=== PATIENT | female | born 1950 | race Caucasian/White ===

== ENCOUNTER 2016-09-19 10:30 | Emergency (ER) | payer MEDICARE, OTHER ==
[2016-04-23 11:06] VITALS: BMI 35.2
[~2016-09-19 10:30] MED LIST: AMBIEN10 MG PO; ATIVAN1 MG PO; CARAFATE1 G PO; CLARITIN 10 MG10 MG PO; COMBIVENT RESPIM4 GM INH; CYCLOBENZAPRINE10 MG PO; DETROL LA4 MG PO; DULCOLAX5 MG PO; DURAGESIC1 PATCH .2 TD; HYDROCODONE-APA1 TAB PO; LANTUS SOL100 UNIT/1 SC; LANTUS SOL100 UNIT/1 SQ; LISINOPRIL10 MG PO; MIRALAX17 GM PO; NASACORT10.8 ML NASAL; NORCO 10/325 TA1 TA1 PO; PEPCID40 MG PO; PERCOCET 10/3251 TA1 PO; PHENERGAN25 M1 PO; POTASSIUM HCL; POTASSIUM HCL PO; POTASSIUM99 M1 PO; PRAVACHOL40 MG PO; PRILOSEC20 MG PO; PROTONIX40 MG PO; PROZAC40 MG PO; STOOL SOFTENER240 MG PO; SYNTHROID50 MCG PO; TAMOXIFEN CITRA20 MG PO; VESICARE5 MG PO; VITAMIN C1000 MG PO; WELLBUTRIN75 MG PO; ZANAFLEX4 MG PO; ZOFRAN8 MG PO; [UNRECOGNIZED DRUG - REMARK]
[2016-09-19 11:41] LABS: APPEARANCE CLOUDY (CLEAR); BILIRUBIN NEGATIVE (NEGATIVE); COLOR YELLOW (YELLOW); GLUCOSE NEGATIVE (NEGATIVE); KETONE NEGATIVE (NEGATIVE); LEUKOCYTE ESTERASE TRACE (NEGATIVE); NITRITE NEGATIVE (NEGATIVE); PROTEIN NEGATIVE (NEGATIVE); UROBILINOGEN NORMAL (NORMAL)
[2016-09-19 11:47] LABS: BASOPHILS 0.2 % (0.0-2.0); EOSINOPHILS 0.2 % (0-7); HEMATOCRIT 38.4 % (36.0-48.0); HEMOGLOBIN 12.2 g/dL (12-16); LYMPHOCYTES 10.1 % (15-50); MCHC 31.8 g/dL (31.0-37.0); MCV 91.4 fL (80.0-100.0); MEAN PLATELET VOLUME 10.6 fL (7.4-10.4); MONOCYTES 1.7 % (2-11); NEUTROPHILS 87.8 % (40-80); RDW 14.1 % (11.5-14.5); WBC 4.2 10x3/uL (4.8-10.8)
[2016-09-19 11:52] LABS: BACTERIA MODERATE /hpf (NONE SEEN); RED CELLS - URINE NONE SEEN /hpf (0-5)
[2016-09-19 12:12] LABS: ALBUMIN 3.3 g/dL (3.4-5.0); ANION GAP 13.8 mmol/L (8-16); BILIRUBIN - TOTAL 0.4 mg/dL (0.2-1.3); CARBON DIOXIDE 26.7 mmol/L (21.0-32.0); CREATININE - SERUM 1.1 mg/dL (0.6-1.3); POTASSIUM - SERUM 4.5 mmol/L (3.5-5.1)
[2016-09-19 12:16] LABS: PLATELET COUNT 117 10x3/uL (130-400)
[2016-09-19 12:49] LABS: UDS - AMPHET NEGATIVE QUAL (NEGATIVE); UDS - BARB NEGATIVE QUAL (NEGATIVE); UDS - BENZO NEGATIVE QUAL (NEGATIVE); UDS - COCAINE NEGATIVE QUAL (NEGATIVE); UDS - METH NEGATIVE QUAL (NEGATIVE); UDS - OPIATE POSITIVE QUAL (NEGATIVE); UDS - PCP NEGATIVE QUAL (NEGATIVE); UDS - THC NEGATIVE QUAL (NEGATIVE)
== END 2016-09-19 15:00 | disposition home or self-care (01) ==
LOC: D.ER 10:30
PROVIDERS: Emergency Medicine; Nurse Practitioner Family
DX: T40.2X1A Poisoning by other opioids, accidental (unintentional), initial encounter (principal); Y92.019 Unspecified place in single-family (private) house as the place of occurrence of the external cause; F32.9 Major depressive disorder, single episode, unspecified; G47.00 Insomnia, unspecified; Z95.0 Presence of cardiac pacemaker; I48.0 Paroxysmal atrial fibrillation; E03.9 Hypothyroidism, unspecified; E11.9 Type 2 diabetes mellitus without complications; Z79.4 Long term (current) use of insulin

== ENCOUNTER 2016-09-22 13:39 | Inpatient (IN) | payer MEDICARE, OTHER ==
[~2016-09-22] VITALS: Ht 162.6 cm; Wt 80.7 kg
--- NOTE | 2016-09-22 13:55 | NUR ---
Arrived to unit ambulatory accompanied per admission staff, verbalized name and , patient crying and holding her head in her lap. Expresses that she lost her spouse six months ago " I'm alone, I have nobody." asked if she had a support system at [facility] " they don't have time for me." has passive wish, " I just want to sleep on." No plan. Contracted for safety. Assessment complete. Oriented to unit. Patient lives alone at home, drove herself here, states she has a friend Paola for emergency contact.
[2016-09-22] MEDS ORDERED: K-DUR20 MEQ PO (14:09)
[2016-09-22] MEDS ORDERED: MS CONTIN30 MG PO (14:18)
[2016-09-22] MEDS ORDERED: PEPCID AC20 MG PO (14:22)
[2016-09-22 15:50] LABS: HEMOGLOBIN A1C 5.3 % (4.8-6.0)
[2016-09-22 16:02] LABS: CHOL - HDL RATIO 3.1 ratio (2.3-4.1); LDL-HDL RATIO 1.8 ratio (1.5-3.5); THYROID STIMULATING HORMONE 0.9 uIU/mL (0.36-3.74)
[2016-09-22 16:29] VITALS: BP 151/90
[2016-09-22 16:43] LABS: APPEARANCE HAZY (CLEAR); COLOR YELLOW (YELLOW); GLUCOSE NEGATIVE (NEGATIVE); KETONE NEGATIVE (NEGATIVE); LEUKOCYTE ESTERASE 1+ (NEGATIVE); NITRITE NEGATIVE (NEGATIVE); PROTEIN NEGATIVE (NEGATIVE)
[2016-09-22 16:44] LABS: BACTERIA MANY /hpf (NONE SEEN); BILIRUBIN NEGATIVE (NEGATIVE); UROBILINOGEN NORMAL (NORMAL)
[2016-09-22 20:00] VITALS: BP 138/69
--- NOTE | 2016-09-22 20:05 | NUR ---
RECEIVED IN DAYROOM. LAYING ON SOFA WITH EYES CLOSED. RESPONDS TO TOUCH. CALM AND COOPERATIVE WITH CARE AND ASSESSMENT. DENIES THOUGHT OF SELF HARM. ENCOURAGE TO EXPRESS NEEDS AND FEELINGS. REMAINS ON SOFA WITH EYES CLOSED. CONTINUE PLAN OF CARE
[2016-09-23 07:25] VITALS: BP 146/94
[2016-09-23 10:17] LABS: HEMOGLOBIN A1C 5.8 % (4.8-6.0)
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
--- NOTE | 2016-09-23 12:09 | NUR ---
(B)RECEIVED PATIENT SITTING IN A CHAIR AT THE NURSE'S STATION. ORIENTED X3. RELATES REASON FOR HOSPITALIZATION "CAUSE I DIDN'T TAKE MY MEDICINE RIGHT." WHEN ASKED PATIENT IF SHE WAS HAVING THOUGHTS OF HURTING SELF SHE DENIES THIS REALTING "JUST WANTED TO GO TO SLEEP. SOMETIMES I DON'T FEEL LIKE I GET EMOUGH SLEEP." (I)ADMINISTER MEDS AND MONITOR COMPLIANCE. OBTAIN VERBAL NO HARM CONTRACT. (R)MED COMPLIANT. CONTRACTS VERBALLY FOR NO SELF HARM, (P)CONTINUE POC AND MAINTAIN FALL PRECAUTIONS.
[2016-09-23 15:09] VITALS: BMI 30.5
[2016-09-23 19:16] VITALS: BP 113/76
--- NOTE | 2016-09-23 19:57 | NUR ---
RECEIVED IN DAYROOM. LAYING ON SOFA WITH EYES OPEN WATCHINT TV. CALM AND COOPERATIVE WITH CARE AND ASSESSMENT. DENIES THOUGHT OF SELF HARM. ENCOURAGE TO EXPRESS NEEDS. ALERT AND ORIENTED.CONTINUE PLAN OF CARE
[2016-09-24 06:16] LABS: RAPID PLASMA REAGIN Non Reactive (Non Reactive)
[2016-09-24 08:06] VITALS: BP 134/78
[2016-09-24 09:19] LABS: FOLATE (FOLIC ACID) - SERUM >20.0 ng/mL (>3.0)
--- NOTE | 2016-09-24 10:30 | NUR ---
SPOKE WITH PATIENT'S FRIEND AFTER RECEIVING PERMISSION FROM PATIENT. UPDATE ON CONDITION GIVEN. QUESTIONS ANSWERED.
[2016-09-24 12:21] LABS: VITAMIN D 25 HYDROXY 26.9 ng/mL (30.0-100.0)
--- NOTE | 2016-09-24 16:33 | PN ---
PATIENT:CHIO CHRIS MEDICAL RECORD: [id number] LOCATION:[facility] ADMISSION DATE: 09/22/16 PROGRESS NOTE DATE OF SERVICE: 09/23/2016 SUBJECTIVE: The patient's case was discussed with staff. She has no new complaint. OBJECTIVE: The patient is in good behavioral control with poor insight about her condition. She is profoundly depressed. Today, she denies wanting to kill herself and says she wishes she just go to sleep and not wake up. ASSESSMENT: No change in diagnoses. PLAN: The patient is going to be given a different antidepressant. She is on both Prozac and Wellbutrin. She insists she has been taking them consistently and it is been for a long time. I am going to discontinue both of them and start her on Effexor. Brief supportive and educational interventions were made. TRANSINT:[id number] Voice Confirmation ID: [id number] DOCUMENT ID: [id number] AIDE TA MD at 1633 CC: [id number] DICTATION DATE: 09/23/162116 COVERSTITCH BINDER: 09/23/163 ADM IN [place] [id number] [place] [address]
--- NOTE | 2016-09-24 16:33 | PSY ---
PATIENT NAME:CHIO CHRIS MEDICAL RECORD: [id number] : 50 LOCATION:[facility]7 ADMISSION DATE: 09/22/16 ACCOUNT: [id number] PSYCHIATRIC EVALUATION DATE OF EVALUATION: 09/22/16 Psychiatric Evaluation IDENTIFYING DATA: The patient is 66 years old and she is admitted to the hospital on a voluntary basis. CHIEF COMPLAINT: Depression. HISTORY OF PRESENT ILLNESS: The patient is a very nice woman, who unfortunately has had a great deal of stress lately. She lost her of 25 years 6 months ago and since losing him, she has been diagnosed with breast cancer. She endorses numerous neurovegetative depressive symptoms and says she wishes she were and that she has thought about ways that she could kill herself. She denies substance abuse and psychotic symptoms. PAST MEDICAL HISTORY: Significant for breast cancer, hypertension, diabetes and hypothyroidism. PAST PSYCHIATRIC HISTORY: Significant for depression, which predates the most recent events. She has been hospitalized in the past for depression and denies that she has actively sought to kill herself. FAMILY HISTORY: Negative for psychiatric disease. ALLERGIES: No known drug allergies. CURRENT MEDICATIONS: Please see the admission's MAR. SOCIAL HISTORY: The patient has been twice. She has 1 child and 2 stepchildren. She is not close to any of them. She is not originally from this area, although she has lived here for a long time. As mentioned above, her of the past 25 years 6 months ago and she has been having a very difficult time adjusting to his and then she now also has developed breast cancer. She is severely depressed with suicidal thoughts and a very limited support system. MENTAL STATUS EXAMINATION: The patient is awake, alert and oriented to person, place, somewhat to time and fully to situation. Her mood is depressed. Her affect is constricted. Thought processes are slowed and she has mild impairment of her memory, concentration and abstraction abilities. She denies that she would seek to harm others as well as psychotic symptoms, but she endorses thoughts of self-harm as described above. ASSETS: Ability to make her needs known. LIABILITIES: Limited insight. DIAGNOSTIC IMPRESSION: AXIS I: Major depression, severe, recurrent, without psychotic features. AXIS II: None. AXIS III: Breast cancer, hypertension, diabetes, hypothyroidism. AXIS IV: Severe stressors. AXIS V: Global assessment of functioning is 40. PLAN: At this time, the patient is admitted to the hospital for a comprehensive medical, psychological and social evaluation. She will be treated with both mood-stabilizing and antidepressant medications as deemed appropriate. Her long-term prognosis is guarded. TRANSINT:[id number] Voice Confirmation ID: [id number] DOCUMENT ID: [id number] AIDE TA MD at 1633 CC: [id number] DICTATION DATE: 09/22/161944 PARKING METER INSTALLER: 09/22/162150 ADM IN [facility] [address] [place] [address]
--- NOTE | 2016-09-24 18:18 | NUR ---
(B)RECEIVED PATIENT SITTING IN A CHAIR AT THE NURSE'S STATION. ORIENTED X3. POOR INSIGHT INTO THE REASON FOR HOSPITALIZATION AND IS IN DENIAL WHEN SHE IS INFORMED OF HAVING THOUGHTS OF HURTING SELF. RELATES JUST WANTED TO SLEEP. SOCIALLY WITHDRAWN AND ISOLATIVE. EPISODES OF CRYING AND ROCKING BACK AND FORTH. PATIENT RELATES "I CAN'T TELL YOU" WHEN ASKED THE REASON SHE IS UPSET. REQUESTING TO SPEAK WITH CARLY THE RESEARCH DEVELOPMENT DIRECTOR. (I)ADMINISTER MEDS AND MONITOR COMPLIANCE. OBTAIN VERBAL CONTRACT FOR NO SELF HARM.(R) MED COMPLIANT. CONTRACTS VERBALLY FOR NO SELF HARM, CONTINUES TO HAVE EPISODES OF TEARFULNESS AND ISOLATING. (P)CONTINUE POC AND MAINTAIN FALL PRECAUTIONS.
[2016-09-24 20:39] VITALS: BP 108/75
--- NOTE | 2016-09-25 00:31 | NUR ---
B) Recieved patient in the day room , alert and oriented X 3, social with staff and peers, helpful and pleasant, I) Administered perscribed medications, monitored for safety, contracted for no self harm, R) Medication compliant, no S.I. this shift, P) Continue plan of care, continue to monitor.
--- NOTE | 2016-09-25 12:32 | PN ---
PATIENT:CHIO CHRIS MEDICAL RECORD: [id number] LOCATION:[facility] ADMISSION DATE: 09/22/16 PROGRESS NOTE DATE OF SERVICE: 09/24/2016 Psychiatric Progress Note SUBJECTIVE: The patient's case was discussed with staff. She has no new complaint. OBJECTIVE: The patient is in good behavioral control, but very tearful. She is also somatic. She is crying, saying she thinks she will never get better and there is no hope for her. ASSESSMENT: Major depression. PLAN: The patient was reassured about how treatable depression is and how little time she is given the medications. Also, supportive and therapeutic interventions were made. I think I may have gotten some incorrect information regarding her past medical history and breast cancer and I will confirm that tomorrow with her primary care physician. TRANSINT:[id number] Voice Confirmation ID: [id number] DOCUMENT ID: [id number] AIDE TA MD at 1232 CC: [id number] DICTATION DATE: 09/24/16 1641 WATER SUPERVISOR: 09/24/16 2206 ADM IN [facility] [address] [place] [address]
--- NOTE | 2016-09-25 14:19 | NUR ---
(B)RECEIVED PATIENT SITTING IN A CHAIR AT THE NURSE'S STATION. ORIENTED X3. RELATES IS HOSPITALIZED "BECAUSE I CAN'T REALLY TAKE CARE OF MYSELF RIGHT NOW." WITHDRAWN HOWEVER WILL SOCIALIZE AT TIMES. WATCHES OTHER PATIENT'S AND TELLS STAFF WHAT THEY NEED TO DO. SOMATIC. RATES PAIN TO BACK AND BUTT 10/10. (I)ADMINISTER MEDS AND MONITOR COMPLIANCE. OBTAIN VERBAL NO HARM CONTRACT. (R)MED COMPLIANT. CONTRACTS VERBALLY FOR NO SELF HARM, DENIES SI THIS. (P)CONTINUE POC AND MAINTAIN FALL PRECAUTIONS.
[2016-09-25 20:59] VITALS: BP 125/65
--- NOTE | 2016-09-26 03:46 | NUR ---
PATIENT GIVEN PRN AMBIEN 10 MG AND PRN ATIVAN 5 MG FOR ANXIETY AND INSOMNIA. BED IN LOW POSITION, BOX ALARM ATTACHED TO PATIENT, SLIP SOCKS ON AND VALENZUELA WITHIN REACH. CONTINUE TO MONITOR
[2016-09-26 07:53] VITALS: BP 129/87
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
--- NOTE | 2016-09-26 13:38 | PN ---
PATIENT:CHIO CHRIS MEDICAL RECORD: [id number] LOCATION:[facility]112 ADMISSION DATE: 09/22/16 PROGRESS NOTE DATE OF SERVICE: 09/25/2016 SUBJECTIVE: The patient's case was discussed with staff. She has no new complaint. OBJECTIVE: The patient is very tearful. She is not eating adequately. She denies that she would seek to harm herself, but she does so in a way that is not very convincing. ASSESSMENT: No change in diagnoses. PLAN: The patient will have her Effexor increased to 37.5 mg twice daily. Effexor is being used to treat her underlying depressive symptoms. She will be monitored for clinical changes associated with its use. TRANSINT:[id number] Voice Confirmation ID: [id number] DOCUMENT ID: [id number] AIDE TA MD at 1338 CC: [id number] DICTATION DATE: 09/25/16 1252 JUTE BAG CLIPPER: 09/25/16 1449 ADM IN [place] [id number] [place] [address]
[2016-09-26 19:30] VITALS: BP 121/73
--- NOTE | 2016-09-26 20:55 | NUR ---
B) RECEIVED IN DAYROOM, SITTING IN CHAIR WATCHING TV WITH PEERS. SHE IS CALM, PLEASANT AND HELPFUL. AMBULATES INDEPENDENTLY. VSS. I) ADMINISTER PRESCRIBED MEDICATIONS, DENIES SELF HARM. EXPRESS NEEDS/FEELINGS R) MEDICATION COMPLIANT. CALM AND COOPERATIVE WITH CARE AND ASSESSMENT. P) CINTINUE CURRENT PLAN OF CARE AND MONITOR FOR SAFETY AND CHANGES.
[2016-09-27 09:32] VITALS: BP 129/79
[2016-09-27 19:30] VITALS: BP 93/45
--- NOTE | 2016-09-27 21:00 | NUR ---
RECEIVED IN DAYROOM SITTINGH IN CHAIR WATCHING TV WITH PEERS. AWAKE AND ORIENTED X 3.. CALM AND COOPERATIVE WITH CARE AND ASSESSMENT. REDIRECT NEEDED. MEDICATION COMPLIANT. VSS. CONTINUE PLAN OF CARE AND MONITOR FOR SAFETY.
[2016-09-28 07:00] VITALS: BP 137/79
--- NOTE | 2016-09-28 15:31 | NUR ---
PATIENT IS AGITATED, SAYING THAT A PEER IS GETTING ALL THE ATTENTION FOR ACTING OUT. SHE IS SHAKING HER HEAD AND ANGRY. PATIENT ASKED FOR MEDICATION FOR ANXIETY. PRN ATIVAN GIVEN
--- NOTE | 2016-09-28 16:02 | NUR ---
PATIENT IN DAYROOM, HOLDING HEAD IN HANDS. PAIN LEVEL 10/10. REFUSED ICE OR REPOSITIONING. CONTINUE TO MONITOR
[2016-09-28 19:30] VITALS: BP 123/81; BP 142/76
--- NOTE | 2016-09-29 03:49 | NUR ---
B) Recieved patient sitting in the day room watching TV< Alert and oriented X 3, anxious at times worried about getting her sleeping pill, I) Administered perscribed medications, monitored for safety , PRN Ambien 10 mg given for insomnia at 2055, R) Medication compliant, calmer after knowing she would get her sleeping pill, P) Continue plan of care, continue to monitor.
[2016-09-29 07:00] VITALS: BP 119/51
[2016-09-29 09:17] LABS: BASOPHILS 0 % (0.0-2.0); EOSINOPHILS 0 % (0-7); HEMATOCRIT 38.8 % (36.0-48.0); HEMOGLOBIN 12.5 g/dL (12-16); IMMATURE GRANULOCYTES 0.2 % (0-5); LYMPHOCYTES 10.1 % (15-50); MCH 28.8 pg (26.0-34.0); MCHC 32.2 g/dL (31.0-37.0); MCV 89.4 fL (80.0-100.0); MEAN PLATELET VOLUME 10.5 fL (7.4-10.4); MONOCYTES 6.1 % (2-11); NEUTROPHILS 83.6 % (40-80); RBC 4.34 10x6/uL (4.00-5.40); RDW 14.2 % (11.5-14.5); WBC 4.3 10x3/uL (4.8-10.8)
[2016-09-29 09:20] LABS: ANION GAP 11.2 mmol/L (8-16); CALCIUM 8.6 mg/dL (8.5-10.1); CARBON DIOXIDE 28.6 mmol/L (21.0-32.0); CREATININE - SERUM 0.9 mg/dL (0.6-1.3); POTASSIUM - SERUM 3.8 mmol/L (3.5-5.1)
[2016-09-29 09:50] LABS: PLATELET COUNT 70 10x3/uL (130-400)
[2016-09-29 09:53] LABS: PLATELET ESTIMATE DECREASED
--- NOTE | 2016-09-29 14:09 | PN ---
PATIENT:CHIO CHRIS MEDICAL RECORD: [id number] LOCATION:[facility] ADMISSION DATE: 09/22/16 PROGRESS NOTE DATE OF SERVICE: 09/26/2016 SUBJECTIVE: The patient's case was discussed with staff. She has no new complaint. OBJECTIVE: The patient is in good behavioral control with limited insight about her condition. She does tolerate her medicines well. ASSESSMENT: No change in diagnoses. PLAN: Current medicines have been reviewed and will be maintained. Her long-term prognosis is guarded. TRANSINT:[id number] Voice Confirmation ID: [id number] DOCUMENT ID: [id number] AIDE TA MD at 1409 CC: [id number] DICTATION DATE: 09/26/16 1331 SILVER HOLLOWARE ASSEMBLER: 09/26/16 2047 ADM IN [place] [id number] [place] [address]
--- NOTE | 2016-09-29 15:05 | NUR ---
B.) Alert and oriented times four, not wanting to get out of bed this am, with somatic complaints of " I'm getting pneumonia." Medical MD present, reported temp of 100.2 and productive cough with greenish colored sputum. C X R and lab ordered. I.) Administer medications and monitor compliance. Monitor for any suicidial ideations and contrat for safety. Encourage to express feelings and participation in group. R.) Compliant with medications, reluctant to get out of bed, ate breakfast and then laid on safa, emotionally labile, tearful and cries at times then will turn around smiling and conversing with staff. Contracted for no self harm. P.) Continue with plan of care.
[2016-09-29 19:30] VITALS: BP 96/58
--- NOTE | 2016-09-29 20:11 | NUR ---
RECEIVED IN DAYROOM. LAYING ON SOFA WITH EYES OPEN WATCHING TV, CALM AND COOPERATIVE WITH CARE AND ASSESSMENTS. DENIES THOUGHT OF SELF HARM. ENCOURAGE TO EXPRESS NEEDS. CONTINUES TO EXPRESS NEEDS. CONTINUE PLAN OF CARE
[2016-09-30 12:08] VITALS: Ht 162.6 cm; Wt 80.7 kg
[2016-09-30] MEDS ORDERED: ZITHROMAX250 MG PO (14:09)
[2016-09-30] MEDS ORDERED: LIPITOR10 MG PO (14:09)
[2016-09-30] MEDS ORDERED: LISINOPRIL10 MG PO (14:09)
[2016-09-30] MEDS ORDERED: EFFEXOR50 MG PO (14:10)
--- NOTE | 2016-09-30 14:16 | PN ---
PATIENT:CHIO CHRIS MEDICAL RECORD: [id number] LOCATION:[facility] ADMISSION DATE: 09/22/16 PROGRESS NOTE DATE OF SERVICE: 09/29/2016 SUBJECTIVE: The patient's case was discussed with staff. She has no new complaint. OBJECTIVE: The patient is in good behavioral control with limited insight about her condition. She does tolerate her medicines well. Eye contact is fair. ASSESSMENT: No change in diagnoses. PLAN: The patient's depressive symptoms appear a little bit better. I am going to increase the dose of the Effexor and I would anticipate she can be transitioned out of the hospital soon if this level of improvement is maintained. TRANSINT:[id number] Voice Confirmation ID: [id number] DOCUMENT ID: [id number] AIDE TA MD at 1416 CC: [id number] DICTATION DATE: 09/29/16 1426 NET WASHER: 09/29/16 2341 ADM IN [facility] [address] [place] [address]
--- NOTE | 2016-09-30 18:23 | NUR ---
PATIENT IN DINING ROOM VISITING WITH FAMILY. SHE HAS BEEN PLEASANT, CALM AND COOPERATIVE. CONTINUE TO MONITOR
[2016-09-30 19:52] VITALS: BP 93/55
--- NOTE | 2016-09-30 20:18 | NUR ---
RECEIVED IN DAYROOM. LAYING IN RECLINING CHAIR WITH EYES CLOSED. RESPONDS TO VOICE. CALM AND COOPERATIVE WITH CARE AND ASSESSMENT. DENIES SELF HARM. ENCOURAGE TO EXPRESS NEEDS. CONTINUE PLAN OF CARE
[2016-10-01 08:00] VITALS: BP 141/87
--- NOTE | 2016-10-01 08:31 | NUR ---
Prescriptions called in to [facility] [address] follow up appointment with Dr. Owen scheduled for October 22 at 1500.
--- NOTE | 2016-10-01 11:50 | NUR ---
Alert and oriented time four, smiling and socializing with staff and peers. Very hopeful and states she feels she is able to cope. Goal oriented and is thinking logical. No suicidial ideations, has been instructed on grief support group and Hank transition outpatient. Complaint with mnedications. Plan for discharge today.
--- NOTE | 2016-10-01 12:00 | PN ---
PATIENT:CHIO CHRIS MEDICAL RECORD: [id number] LOCATION:[facility] ADMISSION DATE: 09/22/16 PROGRESS NOTE DATE OF SERVICE: 09/30/2016 SUBJECTIVE: The patient's case was discussed with staff. She has no new complaint. OBJECTIVE: The patient is in good behavioral control with limited insight about her condition. She tolerates her medicines well. She has no thoughts of self-harm, has shown significant improvement and is tentatively scheduled to go home tomorrow. Her long-term prognosis is guarded. Current medicines will be maintained. Followup will be with the outpatient geriatric counseling program. TRANSINT:[id number] Voice Confirmation ID: [id number] DOCUMENT ID: [id number] AIDE TA MD at 1200 CC: [id number] DICTATION DATE: 09/30/16 1424 BUILDING SPECIALIST: 09/30/16 2346 ADM IN [place] [address] [place] [address]
--- NOTE | 2016-10-01 12:30 | NUR ---
Prepared for discharge, patient states she is driving herself home, has close friends to rely on. Good spirits. Discharge instructions and telephone number given regarding support groups and outpatient treatment. Verbalized understanding. Discharged with no incident and ambulated with staff to vehicle.
--- NOTE | 2016-10-02 15:04 | PN ---
PATIENT:CHIO CHRIS MEDICAL RECORD: [id number] LOCATION:[facility] ADMISSION DATE: 09/22/16 PROGRESS NOTE DATE OF SERVICE: 10/01/2016 SUBJECTIVE: The patient's case was discussed with staff. She has no new complaint. OBJECTIVE: The patient has no thoughts of harming herself or others. She tolerates her medicines well. Eye contact is fair. ASSESSMENT: No change in diagnoses. PLAN: The patient does not represent an acute danger to herself or others. She is tolerating her medications well. Her long-term prognosis is guarded. She will be transitioned out of the hospital today and follow up will be with the psychiatrist at [facility] and the day program he operates. TRANSINT:[id number] Voice Confirmation ID: [id number] DOCUMENT ID: [id number] AIDE TA MD at 1504 CC: [id number] DICTATION DATE: 10/01/16 1222 TERRAZZO INSTALLER: 10/01/161913 DIS IN 10/01/16 [facility] [address] [place] [address]
== END 2016-10-01 12:30 | disposition home or self-care (01) | DRG 885 ==
LOC: D.PSYCH 13:39
PROVIDERS: Family Medicine; ADMIT Psychiatry & Neurology Psychiatry
DX: F33.9 Major depressive disorder, recurrent, unspecified (principal); G47.00 Insomnia, unspecified; N32.81 Overactive bladder; K21.9 Gastro-esophageal reflux disease without esophagitis; E03.9 Hypothyroidism, unspecified; I10 Essential (primary) hypertension; J44.9 Chronic obstructive pulmonary disease, unspecified; E11.9 Type 2 diabetes mellitus without complications; Z85.3 Personal history of malignant neoplasm of breast; E78.5 Hyperlipidemia, unspecified; G89.29 Other chronic pain; M54.5 Low back pain

== ENCOUNTER 2016-12-09 19:29 | Inpatient (IN) | payer MEDICARE, OTHER ==
[~2016-12-09] VITALS: Ht 162.6 cm; Wt 71.1 kg
[2016-12-10 03:51] VITALS: BP 172/98
[2016-12-10 06:11] LABS: HEMATOCRIT 39.1 % (36.0-48.0); HEMOGLOBIN 12.7 g/dL (12-16); MCHC 32.5 g/dL (31.0-37.0); MCV 92.2 fL (80.0-100.0); MEAN PLATELET VOLUME 10.2 fL (7.4-10.4); PLATELET COUNT 99 10x3/uL (130-400); RBC 4.24 10x6/uL (4.00-5.40); RDW 15.2 % (11.5-14.5); WBC 2.7 10x3/uL (4.8-10.8)
[2016-12-10 06:22] LABS: HEMOGLOBIN A1C 5.2 % (4.8-6.0)
[2016-12-10 07:23] LABS: ALBUMIN 2.5 g/dL (3.4-5.0); ALKALINE PHOSPHATASE 165 U/L (46-116); ALT (SGPT) 36 U/L (10-68); BILIRUBIN - TOTAL 0.73 mg/dL (0.2-1.3); CALC OSMOLALITY 283 mosm/kg (275-300); CARBON DIOXIDE 30.1 mmol/L (21.0-32.0); CHLORIDE - SERUM 105 mmol/L (98-107); CHOL - HDL RATIO 3.1 ratio (2.3-4.1); CHOLESTEROL, TOTAL 118 mg/dL (0-200); CREATININE - SERUM 0.6 mg/dL (0.6-1.3); GLUCOSE 98 mg/dL (74-106); HDL CHOLESTEROL 38 mg/dL (32-96); LDL CHOLESTEROL 70 mg/dL (0-100); LDL-HDL RATIO 1.8 ratio (1.5-3.5); POTASSIUM - SERUM 3.9 mmol/L (3.5-5.1); PROTEIN - SERUM 6.1 g/dL (6.4-8.2); SODIUM 141 mmol/L (136-145); THYROID STIMULATING HORMONE 0.48 uIU/mL (0.36-3.74); TRIGLYCERIDE 50 mg/dL (30-200); UREA NITROGEN 20 mg/dL (7-18); eGFR NON AFRICAN AMERICAN > 90 mL/min (90-120)
[2016-12-10 07:24] LABS: CALCIUM 8.8 mg/dL (8.5-10.1)
[2016-12-10 07:27] LABS: EOSINOPHILS 5 % (0-7); LYMPHOCYTES 40 % (15-50); MONOCYTES 3 % (2-11); NEUTROPHILS 51 % (40-80); PLATELET ESTIMATE DECREASED
[2016-12-10 08:16] VITALS: BP 156/93
[2016-12-10 11:30] VITALS: BP 140/94
[2016-12-10 14:58] VITALS: BMI 30.5
[2016-12-10 15:55] LABS: APPEARANCE CLEAR (CLEAR); BILIRUBIN NEGATIVE (NEGATIVE); COLOR YELLOW (YELLOW); GLUCOSE NEGATIVE (NEGATIVE); KETONE NEGATIVE (NEGATIVE); LEUKOCYTE ESTERASE NEGATIVE (NEGATIVE); NITRITE NEGATIVE (NEGATIVE); PROTEIN NEGATIVE (NEGATIVE); UROBILINOGEN NORMAL (NORMAL)
--- NOTE | 2016-12-10 16:57 | NUR ---
Received this am alert and oriented times three, crying saying " I'm ready to go, I'm ready to go this is going to be a long day."asking for pain medication " when is the doctor coming I need something for my headache." Noted to stop crying spells to converse with other patient then resumes crying, and looks around as she cries. Asked patient later in day why was she crying" I'm going through [facility]'s doctor said I'll be here a couple of days." Encourage verbalization of feelings and coping skills to decrease crying spells. Does not want to express feelings with staff, will only cry. Safety maintained with no suicidial ideations. Continue plan of care.
[2016-12-10 19:22] VITALS: Ht 162.6 cm; Wt 71.1 kg
[2016-12-10 20:15] VITALS: BP 142/96
--- NOTE | 2016-12-11 00:50 | NUR ---
B) Recieved patient in her room, alert and oriented to self and being in a hospital, needy and attention seeking, crying spells and somatic compliants, I) Administered perscribed medications, PRN Ativan 0.5 mg PO and Haldol 2 mg PO given at 2100 for anxiety, R) Medication compliant, complained of low blood sugar at 0045, tested FSBS was 171 due to orange juice P) Continue plan of care.
--- NOTE | 2016-12-11 05:14 | NUR ---
PATIENT GIVEN PRN PO ATIVAN 0.5 MG AND PO HALDOL 2 MG FOR ANXIETY. PATIENT WASYELLING I CANT DO THIS ANYMORE. AND CRYING OUT.
[2016-12-11 06:13] LABS: VITAMIN D 25 HYDROXY 24.1 ng/mL (30.0-100.0)
[2016-12-11 07:25] LABS: FOLATE (FOLIC ACID) - SERUM >20.0 ng/mL (>3.0)
[2016-12-11 08:19] LABS: RAPID PLASMA REAGIN Non Reactive (Non Reactive)
--- NOTE | 2016-12-11 09:17 | NUR ---
PATIENT CARRYING ON WITH HOLLERING AND WAILING OUT, SHE HAS NO TEARS, SHE IS MAKING DEMANDS TO GO TO BED OR LIE ON THE COUCH, SHE IS NOT ERDIRECTING AND UPSETTING OTHERS WITH BEING SO LOUD AND DISRUPTIVE. ATIVAN 0.5 MG WITH HALDOL 2 MG PO GIVEN NOW. WILL MONITOR.
--- NOTE | 2016-12-11 10:00 | NUR ---
PATIENT HAS CALMED DOWN, SHE HAS NOT BEEN YELLING, SHE HAS LISTENED TO REDIRECTION.
--- NOTE | 2016-12-11 15:05 | NUR ---
B) PATIENT PRESENTS CRYING AND WHINING THIS AM, SAYS SHE NEEDS PAIN PILLS, SHE C/O STOMACH HURTING. DR. MCELROY DID ORDER MEDS TO ALLEVIATE THE PAIN IN HER ABDO. HE SAYS HE THINKS SHE HAS IBS. SHE HAS NOT C/O DIARRHEA, BUT SHE DOES HAVE A LOT OF GAS. PATIENT IS ORIENTED X 3, DEPRESSED AND REQUESTS PAIN MEDS. PATIENT AMBULATES INDEPENDENTLY. I) PROVIDE PRESCRIBED MEDS. R) PATIENT IS COMPLIANT WITH MEDS. P) CONTINUE POC.
--- NOTE | 2016-12-11 16:19 | NUR ---
PATIENT REQUESTED AN ATIVAN. PATIENT HAS BEEN CALMER, BUT THE NOISE FROM OTHERS IS NOW UPSETTING HER. DID PROVIDE HER WITH ATIVAN 0.5 MG WITH HALDOL 2 MG PO, WILL MONITOR.
--- NOTE | 2016-12-11 17:30 | NUR ---
PATIENT IS CALM NO ISSUES, NO YELLING OUT.
--- NOTE | 2016-12-11 17:50 | NUR ---
PATIENT HAS REQUESTED AN ATIVAN, EXPLAINED TO HER THAT SHE JUST HAD ATIVAN AN HOUR AGO AND SHE DOES NOT NEED ONE, EXPLAINED THAT IT IS FOR ANXIETY AND SHE IS NOT ANXIOUS AT THIS TIME.
--- NOTE | 2016-12-11 18:10 | NUR ---
PATIENT SAYS "I'D LIKE A SHOT" AGAIN EXPLAINED THAT A PERSON REQUESTING DOES NOT NORMALLY NEED ONE. SHE IS CALM AND NOT YELLING OUT, NO ANXIETY NOTED.
[2016-12-11 19:48] VITALS: BP 133/85
--- NOTE | 2016-12-12 02:19 | NUR ---
B) Recieved patient in the day room, alert and oriented to self and being in a hospital, calmer and quieter this shift, I) Administered perscribed medications, monitored for safety, R) medication compliant, quietly sleeping now, P) Continue plan of care.
--- NOTE | 2016-12-12 13:15 | NUR ---
B) PATIENT IS NOT YELLING OUT OR CRYING, SHE IS BEING COOPERATIVE, SHE DID ASK THE NURSE PASSING MEDS "CAN I GET A VALIUM". PATIENT AMBULATES INDEPENDENTLY. SHE IS ORIENTED X3, BUT HAS POOR JUDGEMENT. I) PROVIDE PRESCRIBED MEDS. R) PATIENT IS COMPLIANT WITH MEDS. P) CONTINUE POC.
[2016-12-12 15:09] VITALS: BP 140/67
[2016-12-12 19:00] VITALS: BP 194/96
--- NOTE | 2016-12-12 23:41 | NUR ---
PT CONTINUES TO BE ANXIOUS AND DID GET A PRN ATIVAN FOR THIS. PT COMPLAINS OF NOT BEING ABLE TO SLEEP AND CONTINUES TO COME OUT OF ROOM TO THE NURSES STATION. DENIES SI. MEDICATIONS GIVEN ORDERED. WILL CONTINUE TO MONITOR AND CONTINUE WITH PLAN OF CARE.
--- NOTE | 2016-12-13 09:00 | NUR ---
B) PATIENT IS AWAKE AND ALERT, HER BP IS ELEVATED 149/98 THIS AM, SHE ATE BREAKFAST, SHE IS WALKING INDEPENDENTLY, COMPLIANT WITH MEDS. SHE IS CALM, BUT SAYS SHE DOESN'T QUITE FEEL RIGHT. I) PROVIDE PRESCRIBED MEDS. R) PATIENT IS COMPLIANT WITH MEDS. P) CONTINUE POC.
[2016-12-13 10:42] VITALS: BP 149/98
--- NOTE | 2016-12-13 12:35 | NUR ---
B) PATIENT IS C/O FEELING FUNNY, TRIED TO EXPLAINED TO HER THAT IT IS LIKELY A REACTION FROM BEING OFF OF HER MEDS, BUT WILL RECHECK BP. BP 201/106.
--- NOTE | 2016-12-13 12:40 | NUR ---
PAGED DR. MCELROY TO LET HIM KNOW ABOUT ELEVATED BLOOD PRESSURE.
--- NOTE | 2016-12-13 12:42 | NUR ---
PATIENT'S BP ELEVATED DID PROVIDE ATIVAN 0.5 MG PO.
--- NOTE | 2016-12-13 13:19 | NUR ---
DR. MCELROY CALLED BACK AND HE ORDERED LISINOPRIL 20 MG PO BID.
--- NOTE | 2016-12-13 13:21 | NUR ---
PATIENT IS SAYING SHE CAN NOT SEE NOW, PUPILS ARE REACTIVE, BUT SHE IS NOT FOLLOWING FINGERS TO FOCUS. PAGED DR. MCELROY AGAIN AND HE ASKED ABOUT OTHER VS, THEY ARE WNL. HE SAID TO MONITOR PATIENT.
--- NOTE | 2016-12-13 15:30 | NUR ---
PT IN CHAIR, CRIED OUT THEN BEGAN HAVING SEIZURE LIKE ACTIVITY, BP201/110 HR 113 SPO2 88, SEIZURE ACTIVITY LASTING APPROX 1 1/2MIN, THEN PT WAS UNRESPOSIVE TO ALL STIMULI, RESPIRATIONS DEEP, TRANSFERED TO ROOM, O2 2L APPLIED PER DR MCELROY, IM ATIVAN ADMINISTERED PER ORDERS FROM LILIBETH.
--- NOTE | 2016-12-13 15:45 | NUR ---
DR. MCELROY ON THE UNIT AND HE ORDERED FOR PATIENT TO BE SENT TO ICU, CALLED THE WOOL PRESSER AND THE PATIENTS SON ZACK (LEFT A MESSAGE FOR THE SON TO CALL US).
--- NOTE | 2016-12-13 16:12 | NUR ---
bp rechecked at 1400 and 1430 noted to be coming down after lisinopril administered, bp of 145/90
[2016-12-13 16:15] LABS: BASOPHILS 0.3 % (0-2); EOSINOPHILS 0.2 % (0-7); HEMOGLOBIN 15.1 g/dL (12-16); IMMATURE GRANULOCYTES 0.2 % (0-5); LYMPHOCYTES 21.4 % (15-50); MCH 30.1 pg (26.0-34.0); MCHC 32.1 g/dL (31.0-37.0); MCV 93.8 fL (80.0-100.0); MEAN PLATELET VOLUME 11.1 fL (7.4-10.4); MONOCYTES 7.7 % (2-11); NEUTROPHILS 70.2 % (40-80); PLATELET COUNT 190 10x3/uL (130-400); RBC 5.01 10x6/uL (4.00-5.40); RDW 15.2 % (11.5-14.5); WBC 9.7 10x3/uL (4.8-10.8)
--- NOTE | 2016-12-13 16:20 | NUR ---
PT BP CONTINUES TO BE ELEVATED AT 186/109, HR 110, RESPRIATIONS EVEN AND UNLABORED, SPO2 94%, O2 2L NC, CONTIUES UNRESPONSIVE TO ALL STIMULI, PUPILS REACTIVE AND SLUGGISH. DR MCELROY AWARE, PT TO BE TRANSFERRED
[2016-12-13 16:38] LABS: ALBUMIN 3.4 g/dL (3.4-5.0); BILIRUBIN - TOTAL 0.6 mg/dL (0.2-1.3); CALCIUM 9.1 mg/dL (8.5-10.1); CARBON DIOXIDE 22.8 mmol/L (21.0-32.0); CREATININE - SERUM 1.1 mg/dL (0.6-1.3); POTASSIUM - SERUM 3.8 mmol/L (3.5-5.1); PROTEIN - SERUM 7.2 g/dL (6.4-8.2)
[2016-12-13] MEDS ORDERED: CATAPRES0.1 MG PO (17:03)
[2016-12-13] MEDS ORDERED: PROTONIX I40 MG/VIAL IV (17:03)
[2016-12-13] MEDS ORDERED: ENALAPRILA1.25 MG/M1 IV (17:03)
--- NOTE | 2016-12-13 17:37 | NUR ---
REPORT CALLED TO KOURTNEY IN ICU, PT TRANSFERRED TO [id number]
--- NOTE | 2016-12-13 17:40 | NUR ---
PATIENT TAKEN TO ICU WITH JIE, PAPERWORK TAKEN WITH ORDERS TO ADMIT AND D/C ORDERS.
--- NOTE | 2016-12-13 18:02 | NUR ---
PATIENTS SISTER SARAHI XIE FROM [place] CALLED TO SPEAK TO PATIENT, EXPLAINED TO HER THAT SHE IS IN ICU AND THAT SHE HAD A SEIZURE, LET HER KNOW WE CALLED SON ZACK, SISTER SAID "NO ZACK IS HER " SHE SAID SHE WILL CALL HIM SO HE CAN CALL ME.
--- NOTE | 2016-12-13 18:10 | NUR ---
STEP SON CALLED TO ASK ABOUT HIS STEP MOM HIS NUMBER IS [phone].
== END 2016-12-13 17:40 | disposition short-term general hospital (02) | DRG 881 ==
LOC: D.PSYCH 19:29
PROVIDERS: Family Medicine; ADMIT Psychiatry & Neurology Psychiatry
DX: F32.9 Major depressive disorder, single episode, unspecified (principal); R45.851 Suicidal ideations; Z85.3 Personal history of malignant neoplasm of breast; I10 Essential (primary) hypertension; E11.43 Type 2 diabetes mellitus with diabetic autonomic (poly)neuropathy; K31.84 Gastroparesis; E03.9 Hypothyroidism, unspecified; J44.9 Chronic obstructive pulmonary disease, unspecified; N32.81 Overactive bladder; K21.9 Gastro-esophageal reflux disease without esophagitis; G47.00 Insomnia, unspecified; E78.5 Hyperlipidemia, unspecified; G89.29 Other chronic pain; M54.5 Low back pain; Z95.0 Presence of cardiac pacemaker; R56.9 Unspecified convulsions

== ENCOUNTER → 2016-12-09 | Emergency (ER) | payer MEDICARE, OTHER ==
[2016-09-30 12:08] VITALS: BMI 30.5
[~2016-12-09] MED LIST changes: +EFFEXOR50 MG PO; +K-DUR20 MEQ PO; +LIPITOR10 MG PO; +MS CONTIN30 MG PO; +PEPCID AC20 MG PO; +ZITHROMAX250 MG PO
[2016-12-09 12:10] LABS: BASOPHILS 0.4 % (0-2); EOSINOPHILS 1.8 % (0-7); HEMATOCRIT 41.2 % (36.0-48.0); HEMOGLOBIN 13.5 g/dL (12-16); LYMPHOCYTES 30.8 % (15-50); MCH 30.3 pg (26.0-34.0); MCHC 32.8 g/dL (31.0-37.0); MCV 92.4 fL (80.0-100.0); MEAN PLATELET VOLUME 11.1 fL (7.4-10.4); MONOCYTES 7.2 % (2-11); NEUTROPHILS 59.8 % (40-80); RBC 4.46 10x6/uL (4.00-5.40); RDW 15.2 % (11.5-14.5); WBC 2.8 10x3/uL (4.8-10.8)
[2016-12-09 12:23] LABS: ALBUMIN 2.7 g/dL (3.4-5.0); ALKALINE PHOSPHATASE 180 U/L (46-116); ALT (SGPT) 41 U/L (10-68); BILIRUBIN - TOTAL 0.56 mg/dL (0.2-1.3); CALC OSMOLALITY 281 mosm/kg (275-300); CALCIUM 8.7 mg/dL (8.5-10.1); CARBON DIOXIDE 24.9 mmol/L (21.0-32.0); CHLORIDE - SERUM 106 mmol/L (98-107); CREATININE - SERUM 0.7 mg/dL (0.6-1.3); GLUCOSE 132 mg/dL (74-106); PLATELET COUNT 109 10x3/uL (130-400); POTASSIUM - SERUM 4.3 mmol/L (3.5-5.1); PROTEIN - SERUM 6.3 g/dL (6.4-8.2); SODIUM 139 mmol/L (136-145); UREA NITROGEN 19 mg/dL (7-18); eGFR NON AFRICAN AMERICAN 89 mL/min (90-120)
[2016-12-09 13:59] LABS: APPEARANCE CLEAR (CLEAR); BILIRUBIN NEGATIVE (NEGATIVE); COLOR AMBER (YELLOW); GLUCOSE NEGATIVE (NEGATIVE); KETONE NEGATIVE (NEGATIVE); LEUKOCYTE ESTERASE NEGATIVE (NEGATIVE); NITRITE NEGATIVE (NEGATIVE); PROTEIN NEGATIVE (NEGATIVE); UROBILINOGEN NORMAL (NORMAL)
== END ==
LOC: D.ER 11:18
PROVIDERS: Emergency Medicine
DX: R10.11 Right upper quadrant pain (principal); E11.9 Type 2 diabetes mellitus without complications; Z79.4 Long term (current) use of insulin; K31.84 Gastroparesis; D72.819 Decreased white blood cell count, unspecified; D69.6 Thrombocytopenia, unspecified; F32.9 Major depressive disorder, single episode, unspecified; Z95.0 Presence of cardiac pacemaker; E03.9 Hypothyroidism, unspecified

== ENCOUNTER 2016-12-13 17:19 | Inpatient (IN) | payer MEDICARE, OTHER ==
[~2016-12-13] VITALS: Ht 162.6 cm; Wt 76.1 kg
[2016-12-13] VITALS (9 sets, daily range): BP systolic 131–159; BP diastolic 85–100; BMI 23.2
[~2016-12-13 17:19] MED LIST changes: +CATAPRES0.1 MG PO; +ENALAPRILA1.25 MG/M1 IV; +PROTONIX I40 MG/VIAL IV
--- NOTE | 2016-12-13 17:19 | NUR ---
REC'D PT VIA BED - LYING SUPINE IN BED - IV ACCESS OBTAINED VIA LEFT SIDE PORT, AND RIGHT AC 22GA. VSS.
--- NOTE | 2016-12-13 18:00 | NUR ---
PERCUSSION TUNER CALLED - ASKED TO CHANGE CT WITH CONTRAST TO CT WITHOUT CONTRAST. [id number] - PAGED LILIBETH ARELLANO - SPOKE TO DR. MCELROY - UPDATED ON PT'S TRANSFER TO ICU - AGREED TO CT WITHOUT CONTRAST - WILL NOTIFY PERCUSSION TUNER. ABG DONE - UPDATED Co2 AT 77; Ph: 7.1. ORDERED CONSULT PULMONARY FOR BIPAP.
--- NOTE | 2016-12-13 18:35 | NUR ---
NOTIFIED DR. LUQUE OF CONSULT. UPDATED ON PT'S STATUS AND EVENTS THAT LED UP TO PT'S ADMITTING INTO ICU. ORDERS RECEIVED.
--- NOTE | 2016-12-13 18:40 | NUR ---
PT RTN FROM CT - AWAITING RESULTS - VS 146/98 (122)HR 99; O2 98% ON BIPAP 26/10. R.T. SITTING UP BIPAP
--- NOTE | 2016-12-13 19:10 | NUR ---
REPORT RECEIVED AT BEDSIDE WITH KOURTNEY BUTLER. NS @ 75ML/HR STARTED PER DAY SHIFT RN TO LEFT CHEST INFUSAPORT. RT UPPER CHEST TRANSVERSE INCISION NOTED WITH BULGE UNDER SKIN. MULTIPLE BRUISING NOTED TO BILATERAL LE'S AND RT HIP, LEFT FOREHEAD. SKIN TEAR NOTED TO LEFT FOREARM. OLD SCARS NOTED TO ABD. ON BIPAP MASK SETTINGS: 14/5; RATE OF 12; FIO2 @ 30%. RT AC AREA 22G SALINE LOCKED. OLD SCARRING TO BILATERAL KNEES. OPENS EYES AND TRACKS NURSING IN THE ROOM BUT DOES NOT ANSWER QUESTIONS. WILL MONITOR.
--- NOTE | 2016-12-13 19:40 | NUR ---
ABG BEING OBTAINED PER Svetlana OLEA. HOLDING RT ARM DOWN DUE TO BEING STIFF. WILL MONITOR.
--- NOTE | 2016-12-13 20:38 | NUR ---
DR. PARKER MADE AWARE OF CONSULT. UPDATE GIVEN. NEW ORDERS RECEIVED FOR IV LOPRESSOR.
--- NOTE | 2016-12-13 20:55 | NUR ---
GONSALEZ PLACED UNDER STERILE TECHNIQUE-18 CHINESE. TOLERATED WELL. 150ML OF CLEAR, CHARLETTE URINE NOTED IN URIMETER. WILL SEND SPECIMEN TO LAB. WILL MONITOR.
[2016-12-13 22:03] LABS: UDS - AMPHET NEGATIVE QUAL (NEGATIVE); UDS - BARB NEGATIVE QUAL (NEGATIVE); UDS - BENZO NEGATIVE QUAL (NEGATIVE); UDS - COCAINE NEGATIVE QUAL (NEGATIVE); UDS - METH NEGATIVE QUAL (NEGATIVE); UDS - OPIATE NEGATIVE QUAL (NEGATIVE); UDS - PCP NEGATIVE QUAL (NEGATIVE); UDS - THC NEGATIVE QUAL (NEGATIVE)
[2016-12-13 22:05] LABS: COLOR YELLOW (YELLOW)
[2016-12-13 22:06] LABS: APPEARANCE CLEAR (CLEAR); BILIRUBIN NEGATIVE (NEGATIVE); GLUCOSE NEGATIVE (NEGATIVE); KETONE NEGATIVE (NEGATIVE); LEUKOCYTE ESTERASE NEGATIVE (NEGATIVE); NITRITE NEGATIVE (NEGATIVE); PROTEIN TRACE mg/dL (NEGATIVE); SPECIFIC GRAVITY 1.025 (1.005-1.020); UROBILINOGEN NORMAL (NORMAL)
[2016-12-13 22:07] LABS: AMORPHOUS SEDIMENT <1+ /lpf (NONE SEEN); RED CELLS - URINE 0-5 /hpf (0-5); WHITE CELLS - URINE 0-5 /hpf (0-5)
--- NOTE | 2016-12-13 23:15 | NUR ---
REASSESSMENT COMPLETED. SEE ASSESSMENT FLOWSHEET. WILL FOLLOW SOME SIMPLE COMMANDS. CAN NOT TELL ME HER NAME. WORD SALAD NOTED. WILL MONITOR.
--- NOTE | 2016-12-13 23:40 | NUR ---
BEGINNING TO TALK AND NOT MAKING ANY SENSE. SORT OF A WORD CHRISTINE NOTED. INFORMED SHE COULD NOT TALK WITH THE BIPAP MASK ON. WILL MONITOR.
[2016-12-14] VITALS (23 sets, daily range): BP systolic 98–203; BP diastolic 71–186
--- NOTE | 2016-12-14 00:45 | NUR ---
TRYING TO TALK UNDER BIPAP MASK. MASK REMOVED. WORD SALAD STILL PRESENT. NOT ABLE TO MAKE ANY SENSE WITH HER WORDING. ABLE TO FOLLOW COMMANDS SUCH SQUEEZE MY HANDS, LIFT ARMS-EQUAL AND BILATERALLY STRONG. DOES NOT LIFT LEGS TO COMMAND. ORAL CARE PROVIDED. LIP MOISTURIZER APPLIED TO LIPS AND SHE SPREAD THEM NORMALLY HERSELF. WILL LEAVE OFF BIPAP FOR 15 MINUTES PER EMMIE R.T.
--- NOTE | 2016-12-14 01:25 | NUR ---
BIPAP MASK PLACED BACK ON PER EMMIE WITH R.T. WILL MONITOR.
--- NOTE | 2016-12-14 02:15 | NUR ---
TRYING TO TELL ME SOMETHING AND UNABLE TO UNDERSTAND. GETTING FRUSTRATED DUE TO THE COMMUNICATION BARRIER. WILL MONITOR.
--- NOTE | 2016-12-14 02:52 | NUR ---
REASSESSMENT COMPLETED. SEE ASSESSMENT. NO NEW ACUTE CHANGES NOTED. WILL MONITOR.
--- NOTE | 2016-12-14 03:45 | NUR ---
IV LOPRESSOR FINISHED GIVING BECAUSE EARLIER B/P WAS TOO LOW TO GIVE. WILL MONITOR.
--- NOTE | 2016-12-14 05:30 | NUR ---
BIPAP MASK TAKEN OFF AFTER ABG'S RESULTED. ON ROOM AIR O2 SATS 97%. WILL MONITOR.
--- NOTE | 2016-12-14 13:28 | NUR ---
2CC CATHFLO WAS ADMINISTERED INTO LEFT INFUSAPORT PER PROTOCOL PER DR. ALEXANDER ORDER. NURSES ARE ABLE TO INFUSE IV FLUIDS INTO PORT BUT UNABLE TO ASPIRATE BLOOD. AT 1215 ATTEMPTED TO ASPIRATE CATHFLO AND BLOOD WITHOUT SUCCESS. AT 1330 ATTEMPTED TO ASPIRATE CATHFLO AND BLOOD WITHOUT SUCCESS. I DID ASPIRATE CATHFLO BACK AND DID NOT ATTEMPT TO ADMINISTER SECOND DOSE OF CATHFLO DUE TO PATIENT HAS CENTRAL LINE INSERTED BY DR ALEXANDER.
--- NOTE | 2016-12-14 16:12 | NUR ---
1600 IN BED, REFUSES TO LEAVE BP CUFF ON, REFUSES TO LET THIS NURSE PUT BP BACK ON. MORE ALERT THIS AFTERNOON, SOME WORDS SEEM TO MAKE MORE SINCE BUT STILL CONTINUES TO HAVE WORD SALAD.
--- NOTE | 2016-12-14 17:36 | NUR ---
SPOKE WITH TUNNELLER ABOUT PT BP AND NEW ORDERS FOR COREG 50MG A X 1 NOW AND BID. SPOKE WITH MD ABOUT ANXIETY AND AGITATION. PULLING AT LINES AND BP CUFF AND CRYING OUT. NEW ORDER RECEIVED FOR ATIVAN 1MG IV Q 2 PRN. FIRST DOSE OF COREG AND 1 DOSE OF ATIVAN GIVEN, PT RESTING IN BED QUIETLY AT THIS TIME.
--- NOTE | 2016-12-14 19:30 | NUR ---
ASSESSMENT COMPLETE. S1S2. NSR SHOWING ON MONITOR. RR EQUAL NON LABORED. PERRLA. PT CONFUSED; VERBALLY DISRUPTIVE; PULLING AT LINES; ATTEMPTING TO GET OUT OF BED; PULLING AT GONSALEZ CATH. BED ALARM IN USE. ATTEMPTED TO REORIENT PT NOT FOLLOWING COMMANDS. RADIAL AND PEDAL PULSES PALPATED. LEFT SUBCLAVIAN IMPLANTED PORT; PATENT. RT IJ CVL; PATENT; DRESSING BLOODY; INTACT.
--- NOTE | 2016-12-14 19:59 | NUR ---
PAGED DR. MCELROY ABOUT PT PULLING AT LINES. INCREASED CONFUSION. ORDERS RECEIVED.
--- NOTE | 2016-12-14 20:00 | NUR ---
B/L WRIST RESTRAINTS INITIATED. PT PULLING AT LINES; UNABLE TO ORIENT. DOES NOT FOLLOW COMMANDS.
--- NOTE | 2016-12-14 21:00 | NUR ---
NO VISITORS DURING VISITATION.
--- NOTE | 2016-12-14 23:05 | NUR ---
REASSESSMENT COMPLETE. NO ACUTE CHANGES FROM PREVIOUS ASSESSMENT. WILL CONTINUE TO MONITOR.
[2016-12-15] VITALS (24 sets, daily range): BP systolic 115–185; BP diastolic 74–130; Ht 162.6 cm; Wt 76.1 kg
--- NOTE | 2016-12-15 01:10 | NUR ---
PT RESTING; EYES CLOSED. VSS. NO DISTRESS NOTED. CALL LIGHT IN REACH. WILL CONTINUE TO MONITOR.
--- NOTE | 2016-12-15 03:15 | NUR ---
REASSESSMENT COMPLETE. NO ACUTE CHANGES FROM PREVIOUS ASSESSMENT. NOTED DECREASE IN AGITATION; PT REMAINS CONFUSED.
[2016-12-15 03:52] LABS: BASOPHILS 0 % (0-2); EOSINOPHILS 0.3 % (0-7); LYMPHOCYTES 25.4 % (15-50); MCH 30.2 pg (26.0-34.0); MCHC 33.1 g/dL (31.0-37.0); MEAN PLATELET VOLUME 10.3 fL (7.4-10.4); MONOCYTES 8.3 % (2-11); RDW 15.2 % (11.5-14.5)
[2016-12-15 03:54] LABS: HEMATOCRIT 35.7 % (36.0-48.0); HEMOGLOBIN 11.8 g/dL (12-16); MCV 91.3 fL (80.0-100.0); PLATELET COUNT 86 10x3/uL (130-400); RBC 3.91 10x6/uL (4.00-5.40); WBC 3.5 10x3/uL (4.8-10.8)
[2016-12-15 04:35] LABS: CALCIUM 8.7 mg/dL (8.5-10.1); CARBON DIOXIDE 26.6 mmol/L (21.0-32.0); CHLORIDE - SERUM 104 mmol/L (98-107); SODIUM 140 mmol/L (136-145)
[2016-12-15 04:42] LABS: CALC OSMOLALITY 286 mosm/kg (275-300); CREATININE - SERUM 0.6 mg/dL (0.6-1.3); GLUCOSE 116 mg/dL (74-106); POTASSIUM - SERUM 2.9 mmol/L (3.5-5.1); UREA NITROGEN 33 mg/dL (7-18); eGFR NON AFRICAN AMERICAN > 90 mL/min (90-120)
--- NOTE | 2016-12-15 05:00 | NUR ---
SPOKE WITH DR. MCELROY. ELECTROLYTE PROTOCOL IN PLACE. STARTED KCL 20 MEQ TO RT IJ CVL FOR POTASSIUM OF 2.9
--- NOTE | 2016-12-15 07:00 | NUR ---
PT LYING IN BED. RIGHT IJ AND LEFT INFUSAPORT NOTED. RIGHT IJ PATENT AND DRESSING BLOODY. WAS NOTIFIED IN REPORT THAT PT WAS PULLING AT LINES. WILL CHANGE DRESSING. INFUSA PORT PATENT AND DRESSING C/D/I. PT CONFUSED. ALERT TO PERSON ONLY. BILATERAL WRIST RESTRAINTS USED. THEY WERE REMOVED AND SKIN INTEGRITY SHOWS NO IRRITATION/REDDNESS/ S/SX OF INFECTION. RIGHT IJ HAS KPHOS 20MCG/L AND LEFT INFUSA PORT NS 75ML/H. TELEMETRY AT [address] WITH CLEAR YELLOW URNINE NOTED. SCD'S ON PT. DENIES PAIN VERBALLY. CALL LIGHT IN REACH. WILL CONT POC.
--- NOTE | 2016-12-15 07:57 | NUR ---
GREENHOUSE TECHNICIAN IN ROOM PERFORMING EEG.
--- NOTE | 2016-12-15 10:47 | NUR ---
HEAD CT SHOWS 0 ACTIVE INTERCRAINIAL PATHOLOGY
--- NOTE | 2016-12-15 10:49 | NUR ---
PATIENT OFFICE REP AT BED SIDE.
--- NOTE | 2016-12-15 10:54 | NUR ---
0930 COMPOSITION FLOOR SETTER CAME AND TRANSPORT PT TO [facility] FOR HEAD CT VIA BED. WENT WITH PT AND PT FOLLOWED COMMANDS AND TOLERATED HEAD CT WITH 0 DISTRESS/DISCOMFORT NOTED. BACK IN ICU WITH 0 S/SX O DISTRESS/DISCOMFORT NOTED. 0 NEEDS VOICED AT THIS TIME. CALL LIGHT IN REACH. WILL CONT POC.
--- NOTE | 2016-12-15 11:00 | NUR ---
STAT LOCK FOR FC FEEL OFF. NEW STAT LOCK APPLIED TO LEFT LEG.
--- NOTE | 2016-12-15 11:44 | NUR ---
RIGHT IJ PATENT BUT PT HAD BEEN PULLING AT LINE THE NIGHT BEFORE RESULTING DRESSING TO BE BLOODY. DRESSING REMOVED AND DRIED BLOOD WAS NOTED. AREA CLEANED IN STERILE FASSION AND NEW DRESSSING APPLIED. LINES PATENT. WILL CONT POC. PT LYING IN BED WATCHING TV WITH 0 S/SX OF DISTRESS/DISCOMFORT NOTED. 0 NEEDS VOICED AT THIS TIME. WILL TALK TO SELF WITH A UNORGANIZED THOUGHT PROCESS. CALL LIGHT IN REACH. WILL CONT POC.
--- NOTE | 2016-12-15 11:50 | NUR ---
AT BED SIDE.
--- NOTE | 2016-12-15 12:00 | NUR ---
PT FEED A PUREE DIET. HOB ELEVATED TO 90 DEGREES AND PT AT 75% OF FOOD AND DRANK 8 OUNCES OF FLUIDS. NO S/SX OF ASPIRATION. PT STATED SHE WAS FULL.
--- NOTE | 2016-12-15 13:00 | NUR ---
PT LYING IN BED WITH 0 ACUTE CHANGES FROM THIS MORNING. CONFUSION NOTED STILL AND PT CONVERSING WITH SELF ABOUT DOGS AND WHATEVER WAS CORRELATED WITH THE TV. 0 NEEDS VOICED AT THIS TIME. ABLE TO REACH PO FLUIDS. CALL LIGHT IN REACH. WILL CONT POC.
--- NOTE | 2016-12-15 15:05 | NUR ---
PT LYING WITH EYES CLSOED WITH 0 SS/X OF DISTRESS/DISCOMFORT NTOED. BREATHING NORMAL AND UNLABORED. CALL LIGHT IN REACH. WILL CONT POC.
--- NOTE | 2016-12-15 16:00 | NUR ---
LYING IN BED TALKING TO TV CONTROLLER. CONFUSION NOTED. 0 S/SX OF DISTRESS/DISCOMFORT NOTED. SPEAKS CLEARLY, HOWEVER SHE HAS AN UNORGANIZED THOUGHT PROCESS. DENIES NEEDS AT THIS TIME. WILL CONT POC.
--- NOTE | 2016-12-15 16:23 | NUR ---
POTASSIUM WAS COMPLETED 2 HOURS AGO PER PROTOCOL. BLOOD SAMPLE COLLECTED FROM PT AND SAMPLE DROPPED OFF TO LAB.
--- NOTE | 2016-12-15 17:00 | NUR ---
PT REMAINS IN RESTRIANTS TO PREVENT PT FROM RIPPING OUT LINES. PURREE DINNER TRAY IN RESIDENTS ROOM. MAXIMUM ASSISTED FEEDING PT. PT SITTING 90 DEGREES AND FEED WITH 0 S/SX OF DYSPAGIA NOTED. COOPERATIVE BUT STILL HAS AN UNORGANIZED THOUGHT PROCESS. FINISHED 90% OF MEAL AND LIQUIDS LEFT AT BEDSIDE TABLE WITHIN REACH.
--- NOTE | 2016-12-15 18:12 | NUR ---
PT LYING IN BED WITH 0 ACUTE CHANGES. STILL CONFUSED AND HAS A DISORGANIZED THOUGH PROCESS. ABLE TO VOICE NEEDS AND DENIES PAIN AT THIS TIME. 0 S/SX OF DISTRESS/DISCOMFORT NOTED. BREATHING NORMAL AND UNLABORED. CALL LIGHT IN REACH. WILL CONT POC.
--- NOTE | 2016-12-15 19:15 | NUR ---
REPORT RECIEVED. ASSESSMENT COMPLETED. PT CONFUSED AND DIORIENTATED X4. REDDENED AREAR ON THE BASE OF HER SKULL. PUPILS ROUND AND EQUAL. S1S2 HEART SOUNDS. CLEAR LUNG SOUNDS IN THE UPPER LOBES DIMINISHED SOUNDS IN THE LOWER LOBES. BOWEL SOUNDS HYPER ACTIVE. PULSES PALP IN ALL EXTREMETIES. PT POSITIONED FOR COMFORT. WILL CONTINUE TO MONITOR.
--- NOTE | 2016-12-15 21:00 | NUR ---
NO VISITORS AT BEDSIDE POSITIONED FOR COMFORT WILL CONTINUE TO MONITOR.
--- NOTE | 2016-12-15 23:00 | NUR ---
REASSESSMENT COMPLETED. VSS. PT POSITIONED FOR COMFORT WILL CONTINUE TO MONITOR.
[2016-12-16] VITALS (24 sets, daily range): BP systolic 112–167; BP diastolic 62–115
--- NOTE | 2016-12-16 00:15 | NUR ---
PT WAS YELLING AT WHAT SHE THOUGHT WAS PEOPLE IN HER ROOM. WAS VERY ANXIOUS. PRN ATIVAN GIVEN. WILL ASSESS IN 30 MIN.
--- NOTE | 2016-12-16 00:45 | NUR ---
PT REASSESSMENT FOR ANXIETY. SEEMS TO BE FEELING LESS ANXIOUS. PT SLEEPING IN BED.
--- NOTE | 2016-12-16 01:00 | NUR ---
PT SLEEPING WITH THE LIGHTS OUT. VSS. WILL CONTINUE TO MONITOR.
--- NOTE | 2016-12-16 03:00 | NUR ---
REASSESSMENT COMPLETED. PT WENT BACK TO SLEEP FOLLOWING. WILL CONTINUE TO MONITOR.
[2016-12-16 04:38] LABS: HEMATOCRIT 31.7 % (36.0-48.0); HEMOGLOBIN 10.4 g/dL (12-16); MCH 29.6 pg (26.0-34.0); MCHC 32.8 g/dL (31.0-37.0); MCV 90.3 fL (80.0-100.0); MEAN PLATELET VOLUME 10.5 fL (7.4-10.4); PLATELET COUNT 75 10x3/uL (130-400); RBC 3.51 10x6/uL (4.00-5.40); RDW 14.8 % (11.5-14.5)
[2016-12-16 04:40] LABS: WBC 2.2 10x3/uL (4.8-10.8)
[2016-12-16 04:47] LABS: CALCIUM 8.1 mg/dL (8.5-10.1); CARBON DIOXIDE 26.6 mmol/L (21.0-32.0); CHLORIDE - SERUM 103 mmol/L (98-107); CREATININE - SERUM 0.6 mg/dL (0.6-1.3); GLUCOSE 121 mg/dL (74-106); MAGNESIUM - SERUM 1.4 mg/dL (1.8-2.4); SODIUM 137 mmol/L (136-145); eGFR NON AFRICAN AMERICAN > 90 mL/min (90-120)
[2016-12-16 04:48] LABS: CALC OSMOLALITY 277 mosm/kg (275-300); POTASSIUM - SERUM 3.2 mmol/L (3.5-5.1); UREA NITROGEN 22 mg/dL (7-18)
[2016-12-16 05:00] LABS: EOSINOPHILS 1 % (0-7); LYMPHOCYTES 31 % (15-50); MONOCYTES 1 % (2-11); NEUTROPHILS 67 % (40-80); PLATELET ESTIMATE DECREASED
--- NOTE | 2016-12-16 05:00 | NUR ---
PT HAD A BM CLEANED HER UP AND FRESH LINENS APPLIED. GONSALEZ CARE APPLIED PER ICU PROTOCOL SURE STEP METHOD. VSS. WILL CONTINUE TO MONITOR.
--- NOTE | 2016-12-16 07:00 | NUR ---
PT AWAKE AND ALERT, DISORIENTED TO SITUATION. PT ABLE TO FOLLOW COMMANDS WITHOUT DEFICITS. AT TIMES PT TALKS TO SELF AND MUMBLES. ATTEMPTING TO REORIENT PT FREQUENTLY. NORMAL SINUS ON MONITOR, RIGHT UPPER CHEST PACEMAKER NOTED, INTERMITTENT PACING AT THIS TIME. PT ABLE TO REPOSITION SELF IN BED INDEPENDENTLY. COMPLETE SHIFT ASSESSMENT DOCUMENTED PER FLOWSHEET. VITAL SIGNS STABLE. WILL CONTINUE TO MONITOR
--- NOTE | 2016-12-16 08:15 | NUR ---
RESTRAINTS DC AND EXPLAINED TO PT. PT ABLE TO OBEY COMMANDS AND IS SHOWING NO NEED FOR RESTRAINTS AT THIS TIME. WILL CONTINUE TO MONITOR CLOSELY. DC TIME DOCUMENTED PER FLOWSHEET.
--- NOTE | 2016-12-16 09:00 | NUR ---
PT SAT UP AND ATE BREAKFAST INDEPENDENTLY. APPEARS TO BE MORE ORIENTED AT THIS TIME. FAMILY CALLED AND UPDATE GIVEN. WILL CONTINUE TO MONITOR. NO FURTHER CHANGES AT THIS TIME
--- NOTE | 2016-12-16 10:30 | NUR ---
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 ATTEMPTED TO CONTACT AMISH PER PT REQUEST, UNABLE TO REACH AT THIS TIME
--- NOTE | 2016-12-16 11:57 | NUR ---
PT HAD LOOSE/YELLOW/FROTHY BOWEL MOVEMENT. CLEANED AND PARTIAL LINEN CHANGE COMPLETE. SITTING UP EATING LUNCH INDEPENDENTLY. VITLAL SIGNS STABLE. WILL CONTINUE TO MONITOR
--- NOTE | 2016-12-16 14:00 | NUR ---
PT ASLEEP AT THIS TIME. NO ACUTE CHANGES IN STATUS NOTED. VITAL SIGNS STABLE. WILL CONTINUE TO MONITOR
--- NOTE | 2016-12-16 14:11 | NUR ---
Patient Name: CHIO CHRIS Admission Status: Elective Accout number: [id number] Admission Date: 12-13-2016 : 1950 Admission Diagnosis:UNSPECIFIED CONVULSIONS Attending: KARRI Current LOS: 3 Anticipated DC Date: TO BE DETERMINED Planned Disposition: Inpatient Psych Facility Primary Insurance: MEDICARE A & B PLANNED EXTERNAL PROVIDER: ASSISTED AT [facility] Discharge Planning Comments: * Is the patient Alert and Oriented? Yes 0 * How many steps to enter\exit or inside your home? RAMP 0 * PCP DR. SALGADO 0 * Pharmacy [facility] [address] 0 * Preadmission Environment Home Alone 0 * ADLs Independent 0 * Equipment None 0 * Other Equipment NO MEDICAL EQUIPMENT PROVIDER PREFERENCE 0 * List name and contact numbers for known caregivers / representatives who currently or will assist patient after discharge: SAHIL BARRAZA, FRIEND, 0 * Community resources currently utilized None 0 * Please name any agencies selected above. NONE 0 * Additional services required to return to the preadmission environment? Yes * Can the patient safely return to the preadmission environment? No 0 * Has this patient been hospitalized within the prior 30 days at any hospital? Yes 0 CM RECEIVED ORDER FOR PLACEMENT AFTER DISCHARGE. CM REVIEWED CHART, DR'S NOTE INDICATES PLAN TO RETURN PT TO [facility]ED AT HOSPITAL DISCHARGE. CM MET WITH PT IN ROOM TO DISCUSS DISCHARGE PLANNING AND NEEDS. PT REQUIRED REDIRECTION MULTIPLE TIMES SHE WOULD ANSWER PREVIOUS QUESION AGAIN AFTER BEING ASKED THE NEXT QUESTION. PT REPORTS LIVING AT HOME INDEPENDENTLY AND ALONE IN A MOBILE HOME WITH A RAMP. PT REPORTS OWING THE HOME HERSELF. PT HAS NO MEDICAL EQUIPMENT AND NO OUTSIDE SERVICES ASSISTING IN THE HOME. CM DISCUSSED AVAILABILITY OF HOME HEALTH, REHAB SERVICES AND MEDICAL EQUIPMENT. PT DENIES NEED OF RESIDENTIAL PLACEMENT. PT REPORTS UNKNOWN DISCHARGE NEEDS, REPORTING PLAN TO GO HOME WHEN SHE GETS OUT OF THE HOSPITAL; PT REPORTS SHE IS THINKING OF GETTING ASSISTED LIVING AT [facility] BUT HAS NOT EXPLORED THE OPTION YET. PT REPORTS SHE IS FINANCIALLY ABLE TO AFFORD ASSISTED LIVING FOR HERSELF. CM PROVIDED PT INFORMATION ON [facility], [facility] AND [facility] FOR INDEPENDENT AND ASSISTED LIVING AT PT'S REQUEST. PT REPORTS HER FRIEND WILL PICK HER UP FOR DISCHARGE HOME. CM ASKED PT ABOUT [facility]ED. PT REPORTS SHE WAS THERE FOR HER DEPRESSION AND SHE SOMETIMES DOES NOT FEEL SAFE AT HOME WHEN SHE HAS TO MOVE STUFF. PT DENIES HAVING OUTPATIENT TREATMENT FOR HER DEPRESSION. PT STATES SHE HAS BAD DEPRESSION AND DENIES OTHER MENTAL HEALTH ISSUES. PT REPORTS SHE HAS JERKING AND FELL AT HOME, THAT IS WHY SHE IS IN [facility]. CM INFORMED PT OF DOCTORS PLAN FOR HER TO RETURN TO ASSISTED FOR CONTINUED EVALUATION OF PT'S MENTAL HEALTH ISSUES WHEN MEDICALLY STABLE, PT REPORTS AGREEMENT WITH ASSISTED IF THE DOCTOR THINKS SHE NEEDS IT. PT ASKED CM IF HE SAW PT ON TELEVISION YESTERDAY. CM STATED NO AND ASKED PT WHY SHE WAS ON TELEVISION. PT REPORTED SHE WAS ON TV ALL LAST NIGHT ON CHANNEL 7, SHE WAS EVEN ON THE [employer]. PT THINKS SHE WAS ON TV BECAUSE SHE WAS IN [facility] AND NOW HERE IN ICU. CM ASKED PT IF SHE NEEDED ANYTHING ELSE RIGHT NOW, PT DENIED NEEDS, STATES THE NURSES ARE TAKING GOOD CARE OF HER IN THE ICU. DOCTORS NOTE INDICATES PLAN TO RETURN PT TO ASSISTED WHEN MEDICALLY STABLE; PT IN AGREEMENT WITH THAT PLAN AT THIS TIME. PT REPORTS PLAN TO RETURN HOME INDEPENDENTLY UPON DISCHARGE FROM ASSISTED AND REPORTS SHE WILL BE EXPLORING ASSISTED LIVING FOR HERSELF. CM TO CONTINUE TO FOLLOW AND ASSIST NEEDED. Wood Turner: Danny Russo
--- NOTE | 2016-12-16 16:00 | NUR ---
I&O COMPLETED AND DOCUMENTED PER FLOWSHEET. PT ASLEEP AT THIS TIME. WILL WAKE UP FOR DINNER. VITAL SIGNS STABLE. WILL CONTINUE TO MONITOR
--- NOTE | 2016-12-16 17:35 | NUR ---
PT DENIES DINNER TRAY AT THIS TIME, STATES THAT SHE IS TIRED AND WANTS TO SLEEP. EXPLAINED IMPORTANCE OF EATING MEALS. TRAY LEFT WITH PT AND SHE STATES SHE MIGHT EAT LATER WHEN SHE WAKES UP. RESTING PEACEFULLY AT THIS TIME WITH NO COMPLAINTS. VITAL SIGNS STABLE. WILL CONTINUE TO MONITOR
--- NOTE | 2016-12-16 19:30 | NUR ---
REPORT RECIEVED. ASSESSMENT COMPLETED. PT IS ALERT AND ORIENTATED X4. VSS. PULSES PALP IN ALL EXTREMITIES. PT HAS A RIGHT IJ WITH NS @ 75. HAS A INFUSION PORT SALINE LOCKED. RT AC THAT IS SALINE LOCKED. WILL CONTINUE TO MONITOR.
--- NOTE | 2016-12-16 21:00 | NUR ---
PT HAS NO VISITORS AT THIS TIME. GAVE A COMPLETE BED BATH AND LINENS CHANGE. DC'D THE RIGHT AC. PT STATED SHE WAS FEELING MUCH BETTER AND SAID SHE WAS GOING TO SLEEP. POSITIONED FOR COMFORT. WILL CONTINUE TO MONITOR.
--- NOTE | 2016-12-16 23:00 | NUR ---
REASSESSMENT COMPLETED. PT WOKE UP TO ASSESS AFTER ASSESSMENT WAS COMPLETED PT CLOSED EYES AND APPEARED TO GO BACK TO SLEEP.
[2016-12-17] VITALS (24 sets, daily range): BP systolic 106–168; BP diastolic 49–99
--- NOTE | 2016-12-17 01:00 | NUR ---
PT APPEARS TO BE ASLEEP. WILL CONTINUE TO MONITOR.
--- NOTE | 2016-12-17 03:00 | NUR ---
PT APPEARS TO BE SLEEPING IN BED. WILL CONTINUE TO MONITOR.
[2016-12-17 03:50] LABS: BASOPHILS 0.3 % (0-2); EOSINOPHILS 3.8 % (0-7); HEMATOCRIT 31.5 % (36.0-48.0); HEMOGLOBIN 10.5 g/dL (12-16); MCH 30.3 pg (26.0-34.0); MCHC 33.3 g/dL (31.0-37.0); MCV 90.8 fL (80.0-100.0); MEAN PLATELET VOLUME 10.6 fL (7.4-10.4); MONOCYTES 5.4 % (2-11); NEUTROPHILS 62.5 % (40-80); PLATELET COUNT 87 10x3/uL (130-400); RBC 3.47 10x6/uL (4.00-5.40); WBC 3.1 10x3/uL (4.8-10.8)
[2016-12-17 03:59] LABS: CALC OSMOLALITY 283 mosm/kg (275-300); CALCIUM 8.3 mg/dL (8.5-10.1); CARBON DIOXIDE 27.4 mmol/L (21.0-32.0); CHLORIDE - SERUM 109 mmol/L (98-107); CREATININE - SERUM 0.7 mg/dL (0.6-1.3); GLUCOSE 129 mg/dL (74-106); MAGNESIUM - SERUM 1.7 mg/dL (1.8-2.4); PHOSPHOROUS 2.9 mg/dL (2.5-4.9); POTASSIUM - SERUM 3.5 mmol/L (3.5-5.1); SODIUM 141 mmol/L (136-145); eGFR NON AFRICAN AMERICAN 89 mL/min (90-120)
[2016-12-17 04:10] LABS: UREA NITROGEN 14 mg/dL (7-18)
--- NOTE | 2016-12-17 05:00 | NUR ---
PT SLEEPING IN BED. WILL CONTINUE TO MONITOR.
--- NOTE | 2016-12-17 07:00 | NUR ---
PT IN ROOM WATCHING TV WITH 0 S/SX OF DISTRESS/DISCOMFORT NTOED. BREATHING NORMAL AND UNLABORED. ALERT X4. DENIES NEEDS AND PAIN AT THIS TIME. 98.4 64 SINUS RHTHM 98% RA, 166/84 17. FC PATENT WITH CLEAR YELLOW URINE. IJ TO RIGHT JUGULAR WITH NS AT 75ML. INFUSAPORT TO RIGHT SUBCLAVIAN SL. SCD'S ON. CALL LIGHT IN REACH. WILL CONT POC.
--- NOTE | 2016-12-17 09:15 | NUR ---
12/17/2016 9:11 DCP: Discharge Planning Call placed to Franny with [facility]. She will check on 12/14 consult order. She states patient will return to [facility] when medically stable. POC discussed with Dr. Gutierrez - waiting hematology consult.
--- NOTE | 2016-12-17 09:38 | NUR ---
NORCO GIVEN FOR BACK, FEET AND HAND PAIN. 03/24 WILL RECHECK PAIN LEVEL.
--- NOTE | 2016-12-17 10:20 | NUR ---
PAIN LVL 8/10. STATED SHE FEELS BETTER. LIDODERM PATCH PER ORDERS TO LOWER BACK.
--- NOTE | 2016-12-17 11:00 | NUR ---
Nutrition follow-up: Diet: Regular puree with thin liquids PO Intake ~75% of some meals; pt also refusing some meals Labs reviewed +BM NS @ 75ml/hr RDN following.
--- NOTE | 2016-12-17 11:40 | NUR ---
ST AT BED SIDE. ST SPOKE WITH THIS NURSE AND STATED PT WANTS TO REMAIN ON PURRE DIET BECAUSE SHE LIKES IT.
--- NOTE | 2016-12-17 12:00 | NUR ---
LUNCH GIVEN TO PT. PURREE DIET. TOLERATED WELL WITH NO DYSPHAGIA.
--- NOTE | 2016-12-17 12:45 | NUR ---
INFUSAPORT TO LEFT SUBCLAVION DC. HEPARIN LOCKED. 2X2 AND TEGADERM APPLIED TO PORT SITE. NO ACTIVE BLEEDING AT THIS TIME.
--- NOTE | 2016-12-17 13:20 | NUR ---
REPORT RECEIVED FROM NURSE. WILL CONTINUE WITH PATIENT CARE FOR REST OF SHIFT. PT AWAKE AND ALERT. REPORTS PAIN OF 7/10. R- IJ PATENT, DRESSING INTACT. NO REDNESS OR SWELLING NOTED AT SITE. NS RUNNING AT 75ML/HR. GONSALEZ IN PLACE WITH CLOUDY YELLOW URINE. S1 S2. LUNGS SOUNDS CLEAR THOUGH OUT. BOWEL SOUNDS ACTIVE X 4 QUADRANTS. NO TENDERNESS REPORTED ON ABDOMEN. PUPULS 4MM BRISK. REPORTS USING GLASSES CURRENTLY NOT WEARING THEM. MUCOUS MEMBRANES MOIST. SCD'S CURRENTLY NOT ON. SKIN WARM AND DRY. BRUISING AND SCABS/SORES NOTED ON L-ARM. BRUISING NOTED ON R-ARM. R & L RADIAL PULSE PALPABLE 2+. PEDAL PULSES 2+. TRACE OF EDEMA NOTED ON LOWER EXTREMITIES. LINEN CHANGE PROVIDED. CLEAN GOWN PROVIDED. GONSALEZ CARE PROVIDED. SMALL, YELLOW, LIQUID BM NOTED. CALL LIGHT IN REACH, BED LOW. PATIENT TURNS WELL ON OWN. NO OTHER NEEDS AT THIS TIME.
--- NOTE | 2016-12-17 13:55 | NUR ---
C/O BACK AND HANDS AND FEET PAIN. NOTIFIED. NEW ORDER FOR [place]
--- NOTE | 2016-12-17 13:57 | NUR ---
PT STATES PAIN IS TOLERABLE.
--- NOTE | 2016-12-17 14:49 | NUR ---
RIGH IJ FLUSHED PER ORDERS. PT REPORTED PAIN 12/22. NORCO GIVEN PER ORDERS FOR PAIN. NO OTHER NEEDS AT THIS TIME.
--- NOTE | 2016-12-17 18:04 | NUR ---
BS 139 NO INSULIN GIVEN PER SLIDING SCALE. REPORTS PAIN 11/22. PT REPOSITONED FOR COMFORT.
--- NOTE | 2016-12-17 19:30 | NUR ---
REPORT RECIEVED. ASSESSMENT COMPLETED. VSS. PT ALERT AND ORIENTATED X4. POSITIONED FOR COMFORT. WILL CONTINUE TO MONITOR.
--- NOTE | 2016-12-17 21:00 | NUR ---
NO FAMILY AT BED SIDE. FAMILY CALLED UPDATE GIVEN. PT ON PHONE WITH FAMILY TALKING. DENIES ANY NEEDS WILL CONTINUE TO MONITOR.
--- NOTE | 2016-12-17 23:00 | NUR ---
REASSESSMENT COMPLETED. PT APEARED TO BE GOING BACK TO SLEEP. WILL CONTINUE TO MONITOR.
[2016-12-18] VITALS (14 sets, daily range): BP systolic 97–166; BP diastolic 65–99
--- NOTE | 2016-12-18 01:00 | NUR ---
PT APEARS TO BE SLEEPING. WILL CONTINUE TO MONITOR PT.
--- NOTE | 2016-12-18 03:00 | NUR ---
REASSESSMENT COMPLETED. PT DENIES ANY PAIN AFTER RECIEVING HER PRN PAIN MEDS FOR HER BACK PAIN WILL CONTINUE TO MONITOR.
[2016-12-18 05:49] LABS: CALC OSMOLALITY 281 mosm/kg (275-300); CALCIUM 7.9 mg/dL (8.5-10.1); CARBON DIOXIDE 24.9 mmol/L (21.0-32.0); CHLORIDE - SERUM 108 mmol/L (98-107); CREATININE - SERUM 0.7 mg/dL (0.6-1.3); GLUCOSE 125 mg/dL (74-106); LDH 159 U/L (81-234); POTASSIUM - SERUM 3.5 mmol/L (3.5-5.1); SODIUM 141 mmol/L (136-145); UREA NITROGEN 12 mg/dL (7-18); eGFR NON AFRICAN AMERICAN 89 mL/min (90-120)
[2016-12-18 05:56] LABS: HEMATOCRIT 29.7 % (36.0-48.0); HEMOGLOBIN 9.7 g/dL (12-16); MCH 29.7 pg (26.0-34.0); MCHC 32.7 g/dL (31.0-37.0); MCV 90.8 fL (80.0-100.0); MEAN PLATELET VOLUME 11.2 fL (7.4-10.4); PLATELET COUNT 86 10x3/uL (130-400); RBC 3.27 10x6/uL (4.00-5.40); RDW 15.1 % (11.5-14.5)
[2016-12-18 05:57] LABS: WBC 1.9 10x3/uL (4.8-10.8)
[2016-12-18 06:11] LABS: FERRITIN 82 ng/mL (3-244)
[2016-12-18 06:26] LABS: EOSINOPHILS 4 % (0-7); LYMPHOCYTES 38 % (15-50); MONOCYTES 6 % (2-11); NEUTROPHILS 52 % (40-80)
[2016-12-18 06:36] LABS: PLATELET ESTIMATE DECREASED
--- NOTE | 2016-12-18 07:30 | NUR ---
ASSESSMENT COMPLETE. AAOX4. DENIES PAIN. S1S2 NOTED, RADIAL ND PEDAL PULSES PALP. IMPLANTED PACEMAKER PRESENT. ACTIVE BOWEL SOUNDS X4. GENERALIZED WEAKNESS. IJ PATENT. DENIES NEEDS. PACED ON MONITOR. SEE FLOWSHEET FOR ADDITIONAL DETAILS.
--- NOTE | 2016-12-18 07:55 | NUR ---
PT REQUESTS "INDIGESTION PILL." NOTIFIED DR. LUQUE. NEW ORDERS RECEIVED.
--- NOTE | 2016-12-18 08:59 | NUR ---
SPOKE WITH FRIEND ON PHONE, PASSWORD VERIFIED. FRIEND WANTS HER TO BE COMMITTED TO A PSYCH FACILITY FOR THOUGHTS OF SUICIDE. I SPOKE WITH THE PATIENT. SHE DENIES SUICIDAL IDEATION, SAYS THAT SHE IS DEPRESSED BECAUSE HER RECENTLY. SAYS SHE MISSES HIM BUT WOULD NEVER HARM HERSELF OR OTHERS. SHE REQUESTED THAT SAHIL BE REMOVED FROM HER CHART AND DOES NOT WANT HER TO HAVE INFORMATION ANYMORE.
--- NOTE | 2016-12-18 09:40 | NUR ---
DR. MCELROY AT BEDSIDE. NEW ORDERS RECEIVED.
--- NOTE | 2016-12-18 09:59 | NUR ---
PT GOING TO CT IN WHEELCHAIR
--- NOTE | 2016-12-18 10:11 | NUR ---
DR. LUQUE AND DR. ANDREWS SAID OK TO TRANSFER WELL PRIMARY DR. MCELROY
--- NOTE | 2016-12-18 10:50 | NUR ---
PT AT BEDSIDE. SAID PATIENT IS OK TO BE UP WITH ASSIST.
--- NOTE | 2016-12-18 11:10 | NUR ---
REMOVED GONSALEZ PER ORDER. DENIES PAIN. DENIES NEEDS
--- NOTE | 2016-12-18 13:15 | NUR ---
SPOKE WITH DR. MCELROY CONCERNING PATIENT'S "INDIGESTION." PATIENT SAYS PHENERGAN IS THE ONLY THING THAT HELPS. NEW ORDERS RECEIVED
--- NOTE | 2016-12-18 13:40 | NUR ---
REQUESTED PHENERGAN FROM PHARMACY, SAID THEY WOULD BRING IT UP
--- NOTE | 2016-12-18 15:10 | NUR ---
DENIES NEEDS. UP WITH ASSIST.
--- NOTE | 2016-12-18 17:15 | NUR ---
TOOK PATIENT DINNER TRAY. DR. HAMPTON AT BEDSIDE. NO NEW ORDERS .
--- NOTE | 2016-12-18 19:00 | NUR ---
REPORT RECIEVED, SHIFT ASSESSMENT COMPLETE, PT IS ALERT AND ORIENTED, C/O OF ABDOMINAL PAIN, ORDERED PAIN MED GIVEN, ON RA WITH 98% O2 SAT. LUNGS CLEAR IN ALL LOBES, S1S2, CM-NSR, PATENT RIGHT IJ WITH NS INFUSING VIA PUMP, ABDOMEN IS SOFT AND ROUND WITH ACTIVE BS, BSC AT BEDSIDE, ALL PPP, VSS, CALL LIGHT IN REACH
--- NOTE | 2016-12-18 21:15 | NUR ---
UPDATE GIVEN TO FAMILY OVER PHONE, PASSWORD GIVEN
--- NOTE | 2016-12-18 23:10 | NUR ---
NO NEEDS NOTED AT THIS TIME, VSS, CALL LIGHT IN REACH
--- NOTE | 2016-12-19 01:10 | NUR ---
PT UPTO BSC, C/O OF NAUSEA, ORDERED PHENEGRAN GIVEN
[2016-12-19 03:00] VITALS: BP 143/80
--- NOTE | 2016-12-19 03:30 | NUR ---
PT RESTING AT THIS TIME, WILL CON'T TO MONITOR
[2016-12-19 04:37] LABS: BASOPHILS 0.4 % (0-2); EOSINOPHILS 4.9 % (0-7); HEMATOCRIT 33.5 % (36.0-48.0); HEMOGLOBIN 11.3 g/dL (12-16); LYMPHOCYTES 36.2 % (15-50); MCH 30.1 pg (26.0-34.0); MCHC 33.7 g/dL (31.0-37.0); MCV 89.1 fL (80.0-100.0); MEAN PLATELET VOLUME 10.9 fL (7.4-10.4); MONOCYTES 7.7 % (2-11); NEUTROPHILS 50.8 % (40-80); RBC 3.76 10x6/uL (4.00-5.40); RDW 14.7 % (11.5-14.5)
[2016-12-19 04:38] LABS: PLATELET COUNT 105 10x3/uL (130-400); WBC 2.5 10x3/uL (4.8-10.8)
[2016-12-19 04:41] LABS: CALC OSMOLALITY 269 mosm/kg (275-300); CALCIUM 8.4 mg/dL (8.5-10.1); CARBON DIOXIDE 26.6 mmol/L (21.0-32.0); CHLORIDE - SERUM 101 mmol/L (98-107); CREATININE - SERUM 0.6 mg/dL (0.6-1.3); GLUCOSE 139 mg/dL (74-106); POTASSIUM - SERUM 3.4 mmol/L (3.5-5.1); SODIUM 135 mmol/L (136-145); eGFR NON AFRICAN AMERICAN > 90 mL/min (90-120)
[2016-12-19 04:48] LABS: UREA NITROGEN 7 mg/dL (7-18)
--- NOTE | 2016-12-19 05:10 | NUR ---
NO NEEDS NOTED AT THIS TIME, WILL CON'T TO MONITOR
--- NOTE | 2016-12-19 07:15 | NUR ---
TRANSFERRED TO 2130, REPORT GIVEN TO OSVALDO BUTLER. SHE WAS PRESENT WHEN PATIENT WAS LEFT IN ROOM 2130.
--- NOTE | 2016-12-19 07:36 | NUR ---
ARRIVED FROM ICU VIA WC. AWAKE AND ORIENTED. NONSKID SOCKS ON. BED ALARM ON.
--- NOTE | 2016-12-19 07:42 | NUR ---
RECEIVED PT VIA WHEELCHAIR FROM ICU NURSE. PT IS ALERT AND ORIENTED. ON ROOM AIR. IV SEEN TO RIGHT IJ WITH NS RUNNING AT 75CC. BED IS IN LOW POSITION, SIDE RAILS ARE UP X2, CALL LIGHT IS IN REACH, AND BED ALARM IS ON.
[2016-12-19 08:18] LABS: FOLATE (FOLIC ACID) - SERUM >20.0 ng/mL (>3.0)
[2016-12-19 10:18] LABS: HAPTOGLOBIN 161 mg/dL (34-200)
[2016-12-19] MEDS ORDERED: PHENERGAN25 M1 PO (10:51)
[2016-12-19] MEDS ORDERED: LAMICTAL100 MG PO (10:52)
[2016-12-19] MEDS ORDERED: K-DUR20 MEQ PO (10:52)
[2016-12-19] MEDS ORDERED: COREG12.5 MG PO (10:52)
[2016-12-19] MEDS ORDERED: PROTONIX40 MG PO (10:53)
[2016-12-19 11:44] VITALS: BP 153/87
[2016-12-19] MEDS ORDERED: LIPITOR10 MG PO (11:58)
[2016-12-19 13:14] LABS: HEPATITIS C ANTIBODY <0.1 (0.0-0.9)
--- NOTE | 2016-12-19 14:07 | NUR ---
Patient Name: CHIO CHRIS Encounter No: [id number] : 1950 Primary Insurance: MEDICARE A & B Anticipated DC Date: Planned Disposition: HOME HEALTH External Planned Provider: [facility] DCP follow-up note: CM RECEIVED DISCHARGE AND HOME HEALTH ORDERS. CM MET WITH PT IN ROOM, DISCUSSED DISCHARGE PLANNING AND NEEDS. PT AGREEABLE WITH DISCHARGE HOME TODAY, WILL BE GOING HOME ALONE, FRIEND WILL BE CHECKING ON HER THROUGHOUT THE DAY AND WILL TRANSPORT HER HOME TODAY. PT WOULD LIKE HOME HEALTH, CHOSE [facility], CHOICE SIGNED. PT DENIES NEED OF REHAB OR MEDICAL EQUIPMENT. PT DENIES FURTHER DISCHARGE NEEDS. IMPORTANT MESSAGE FROM MEDICARE PROVIDED AND EXPLAINED. CM CALLED [facility], PROVIDED REFERRAL TO [facility] AT [phone]; [facility] WILL TRY TO ADMIT PT OVER WEEKEND BUT IT MAY BE THURSDAY AT THE LATEST FOR ADMISSION. CM NOTIFIED PT WHO WANTS TO CONTINUE WITH [facility]. CM FAXED REFERRAL TO [facility] AT [phone]. NO FURHTER NEEDS IDENTIFIED. Danny Russo, CASE MANGEMENT
--- NOTE | 2016-12-19 15:17 | NUR ---
1500- D/C INSTRUCTIONS EXPLAINED TO PT. D/C PAPERWORK SIGNED BY PT AND PLACED IN CHART. REMOVED IJ TO RIGHT NECK AREA. REMOVED STITCHES. IJ REMOVED AND PRESSURE HELD OVER SITE. NO BLEEDING SEEN. COVERED SITE WITH 2X2 GAUZE PADS AND COVERED WITH TEGADERM. INSTRUCTED PT TO LAY IN BED FOR ATLEAST 15 MIN. PT AGREED. WILL CHECK ON PT AND CONTINUE TO MONITOR. 1519- CHECKED ON PT. DRESSING WHERE IV TO RIGHT IJ WAS REMOVED IS CLEAN, DRY, AND INTACT WITH NO BLEEDING SEEN. PT IS GETTING BELONGINGS TOGETHER NOW AND GETTING DRESSED. WILL D/C ONCE READY.
--- NOTE | 2016-12-19 15:37 | NUR ---
PT D/C VIA WHEELCHAIR.
[2016-12-20 13:11] LABS: HEPARIN INDUCED PLATELET AB 0.124 OD (0.000-0.400)
--- NOTE | 2016-12-22 13:13 | CN ---
PATIENT NAME:CHIO CHRIS MEDICAL RECORD: [id number] : 50 LOCATION:D.M2 D.2131 ADMIT DATE: 12/13/16 ACCOUNT: [id number] CONSULTING PHYSICIAN: MICHAEL LEMON MD REFERRING PHYSICIAN: SURAJ MCELROY MD DATE OF SERVICE: 12/14/2016 HISTORY OF PRESENT ILLNESS: This is a 66-year-old female known to our service with a history of sick sinus syndrome status post pacemaker placement. This is for underlying tachy-kelby. Underlying mechanism is sinus mechanism. She was transferred from [facility] after a questionable syncopal episode and was found to be hypertensive. Pressures are markedly improved at this point. She had questionable seizure activity. She does have a history of breast cancer. CT, however, showed no intracranial pathology. Labs at night are highly abnormal. Currently confused. Difficult historian. We were asked to see her concerning her hypertension and cardiovascular status. PAST MEDICAL HISTORY: History of breast cancer. Hypertension. Cardiomyopathy with ejection fraction of 40%. ALLERGIES: Sulfa, codeine, and latex. CURRENT MEDICATIONS UPON TRANSFER: Tamoxifen 20 milligrams by mouth every day. Effexor 50 milligrams twice a day. Protonix 40 milligrams every day. SOCIAL HISTORY: Unobtainable due to patient factors. REVIEW OF SYSTEMS: Unobtainable due to patient factors. PHYSICAL EXAMINATION: GENERAL: This is a confused female in no acute distress. VITAL SIGNS: Blood pressure 158/88. Pulse 63. HEAD, EYES, EARS, NOSE, AND THROAT: Normocephalic, atraumatic. NECK: No jugular venous distention or bruit. HEART: Regular. 2/6 systolic ejection murmur. LUNGS: Good air excursion. ABDOMEN: Soft, nontender. PULSES: 2+ with no edema. TELEMETRY STRIPS: Show intermittent paced but with underlying sinus mechanism. IMPRESSION AND PLAN: At this point in time, her blood pressure is better controlled. We will check echocardiographic study as well as pacemaker interrogation. This is a simple VVI pacemaker, so we will simply be able to go on rate histograms. No evidence of atrial fibrillation currently. Further recommendations based upon the above. CONSULT REPORT [id number] CHOI CHRIS MICHAEL FRIEND MD at 1313 CC: [id number] DICTATION DATE: 12/14/16 1200 RHEUMATOLOGY SPECIALIST: DM 12/15/16 1434 DIS IN 12/19/16 [facility] [address] [id number]
--- NOTE | 2016-12-22 13:13 | EC ---
PATIENT:CHIO CHRIS DATE OF SERVICE: 12/13/16 SEX: F MEDICAL RECORD: [id number] DATE OF : [birth year] LOCATION:D.M2 D.213 AGE OF PATIENT: 66 ADMISSION DATE: 12/13/16 REFERRING PHYSICIAN: INTERPRETING PHYSICIAN: MICHAEL LEMON MD ECHOCARDIOGRAM REPORT ECHO CHARGES 4 ECHO COMPLETE CLINICAL DIAGNOSIS: LEFT MCA INFARCT/SYNCOPE ECHOCARDIOGRAPHIC MEASUREMENTS (adult normal given) AC root (d.<3.7cm) 3.1 LV Septum d (<1.2 cm> 1.2 Valve Excursion 1.9 LV Septum (systole) 1.4 Left Atria (s.<4.0cm> 3.3 LVPW d(<1.2cm) 1.2 RV (d.<2.3cm) 2.6 LVPW (sytole) 1.5 LV diastole(<5.6CM) 4.8 MV E-F(>70mm/sec) LV systole 3.3 LVOT Diameter 1.7 MV exc.(>10mm) Est.ejection fraction (50-75%) Pericardial Effusion N DOPPLER: LVIT A 105 E 62.0 LA RVSP 38.0 LVOT 120 AOP1/2T 663.0 Asc. Ao 157 RVOT 68.0 RA PA 85.0 AV Gradient Peak 9.8 AV Mean 5.6 AV Area 1.8 MV Gradient Peak 5.9 MV Mean 1.5 MV Area COMMENTS: Medical Engineer: Pradip SANTACRUZ Benefit Authorizer:10 Dr. Keller TAPE# PACS TWO-DIMENSIONAL ECHOCARDIOGRAM WITH DOPPLER Adequate two-dimensional color flow imaging, spectral Doppler, and M mode. Borderline left ventricular hypertrophy is present. Left ventricular internal dimensions are normal. The left ventricular wall motion appears to be normal with ejection fraction of 50%. The aortic valve is tricuspid with no evidence of stenosis on Doppler interrogation. Left atrium is normal at 3.3 centimeters. Mitral valve shows no prolapse with trace mitral regurgitation. Right-sided chambers are grossly normal with mild tricuspid regurgitation. ECHOCARDIOGRAM REPORT [id number] CHIO CHRIS MICHAEL LEMON MD at 1313 CC: [id number] DICTATION DATE: 12/15/16 1200 MINERAL MIXER: DM 12/15/16 1442 DIS IN 12/19/16 [facility] [address] [facility] [place] [address]
== END 2016-12-19 15:38 | disposition home health service (06) | DRG 64 ==
LOC: D.ICU 17:19 → D.M2 17:40
PROVIDERS: Internal Medicine Hematology & Oncology; Internal Medicine Pulmonary Disease; ADMIT Family Medicine
PROC: 0T9B70Z Drainage of Bladder with Drainage Device, Via Natural or Artificial Opening (ICD-10-PCS; principal; 2016-12-13)
PROC: 5A09357 Assistance with Respiratory Ventilation, Less than 24 Consecutive Hours, Continuous Positive Airway Pressure (ICD-10-PCS; 2016-12-13)
PROC: 02HV33Z Insertion of Infusion Device into Superior Vena Cava, Percutaneous Approach (ICD-10-PCS; 2016-12-14)
PROC: B548ZZA Ultrasonography of Superior Vena Cava, Guidance (ICD-10-PCS; 2016-12-14)
DX: I63.512 Cerebral infarction due to unspecified occlusion or stenosis of left middle cerebral artery (principal); J96.02 Acute respiratory failure with hypercapnia; J96.01 Acute respiratory failure with hypoxia; R40.2213 Coma scale, best verbal response, none, at hospital admission; R45.851 Suicidal ideations; I42.9 Cardiomyopathy, unspecified; D61.818 Other pancytopenia; R13.10 Dysphagia, unspecified; J44.9 Chronic obstructive pulmonary disease, unspecified; E11.43 Type 2 diabetes mellitus with diabetic autonomic (poly)neuropathy; K31.84 Gastroparesis; Z95.0 Presence of cardiac pacemaker; E78.5 Hyperlipidemia, unspecified; K21.9 Gastro-esophageal reflux disease without esophagitis; E03.9 Hypothyroidism, unspecified; G47.00 Insomnia, unspecified; R41.0 Disorientation, unspecified; Z85.3 Personal history of malignant neoplasm of breast; I10 Essential (primary) hypertension; F32.9 Major depressive disorder, single episode, unspecified; R56.9 Unspecified convulsions; G89.29 Other chronic pain; M54.5 Low back pain; E87.6 Hypokalemia; E83.42 Hypomagnesemia; R40.2353 Coma scale, best motor response, localizes pain, at hospital admission; R40.2143 Coma scale, eyes open, spontaneous, at hospital admission

== ENCOUNTER → 2018-03-03 17:56 | Outpatient (CLI) | payer MEDICARE, OTHER ==
[2016-12-15 09:46] VITALS: BMI 27.4
[~2018-03-03 17:56] MED LIST changes: +COREG12.5 MG PO; +LAMICTAL100 MG PO
== END | disposition home or self-care (01) ==
LOC: D.MAMMO 10:00
DX: Z85.3 Personal history of malignant neoplasm of breast (principal)

== ENCOUNTER → 2018-03-09 11:22 | Outpatient (CLI) | payer MEDICARE, OTHER ==
[~2018-03-09] VITALS: Ht 162.6 cm; Wt 79.5 kg
--- NOTE | ~2018-03-09 | OP ---
PATIENT NAME: CHIO CHRIS MEDICAL RECORD: [id number] :[birth year] LOCATION:D.CAT ADMISSION DATE: SURGEON: DARLING FRANCO MD DATE OF OPERATION: 03/09/2018 PREOPERATIVE DIAGNOSES: 1. End-of-life pacemaker generator. 2. Coronary artery disease. 3. Diabetes mellitus. 4. Hypertension. 5. Hyperlipidemia. 6. Gastroesophageal reflux disease. POSTOPERATIVE DIAGNOSES: 1. End-of-life pacemaker generator. 2. Coronary artery disease. 3. Diabetes mellitus. 4. Hypertension. 5. Hyperlipidemia. 6. Gastroesophageal reflux disease. PROCEDURE: Right subclavian vein single lead pacemaker generator exchange. SURGEON: Darling Franco MD REPORT OF PROCEDURE: The patient's right chest was prepped and draped in sterile fashion. An 18 mL of 1% lidocaine with epinephrine was infused in the surrounding tissues. An oblique incision was made overlying the indwelling pacemaker. The pacemaker was then eviscerated through the wound and disconnected it from the indwelling leads. The leads have been checked preoperatively and was noted to be functioning appropriately. The new pacemaker generator was affixed to the lead and placed into the subcutaneous pouch. The subcutaneous tissues were irrigated out and then reapproximated with interrupted 3-0 Vicryl and the skin was closed with running subcutaneous 5-0 Monocryl. COMPLICATIONS: None. CONDITION: Stable. ANESTHESIA: Local MAC. BLOOD LOSS: Minimal. TRANSINT:[id number] Voice Confirmation ID: [id number] DOCUMENT ID: [id number] DARLING FRANCO MD at 1714 CC: PATRICIA ARTHUR M.D. [id number] DICTATION DATE: 03/09/18 1338 SMELLER: 03/09/18 1356 DEP CLI 03/09/18 [address] [place] [address]
--- NOTE | ~2018-03-09 | HEMODYNAMI ---
PATIENT:CHIO CHRIS MEDICAL RECORD: [id number] : 50 LOCATION:D.CAT ADMISSION DATE: 03/09/18 Generatedon:03/09/201813:41 Patient name: CHIO CHRIS Patient #: [id number] SSN: : 1950 Date of study: 03/09/2018 Page: Of Hemodynamic Procedure Report Patient Data Patient Demographics Procedure consent was obtained First Name: CHIO Gender: Female Last Name: DOT : 1950 [facility] Initial: L Age: 67 year(s) Patient #: [id number] Race: Unknown Additional ID: [id number] Contact details [address]: [address] [place] [address] [place] State: [place] City: [place] Zip code: [address] Admission Admission Data Admission Date: 03/09/2018 Admission Time: 11:22 Procedure Procedure Types Cath Procedure Diagnostic Procedure PPM/ICD PPM Generator Exg. Single Procedure Description Procedure Date Procedure Date: 03/09/2018 Procedure Start Time: 13:33 Procedure End Time: 13:38 Procedure Staff Name Function Jorge A William MD Performing Physician Conner Varela MD Assisting physician Milton Cheung RT Monitor José Luis Petit RN Nurse Latonya Manjarrez RT Scrub Procedure Data Cath Procedure Fluoroscopy Diagnostic fluoroscopy Total fluoroscopy Time: 0 time: 0 min min Diagnostic fluoroscopy Total fluoroscopy dose: 0 dose: 0 mGy mGy Contrast Material Contrast Material Type Amount (ml) Isovue 300 0 Estimated blood loss: 5 ml Procedure Complications No complications Procedure Medications Medication Administration Route Dosage Ancef (1Gm/50ml NS) I.V.P.B 1 g Ancef Irrigation Topical 1 g (1gm/500ml NS) 0.9% NaCl I.V. 100 ml/hr Fentanyl I.V. 50 mcg Versed I.V. 1 mg Fentanyl I.V. 50 mcg Versed I.V. 1 mg Hemodynamics Rest Pre Cath Intra NCS Post Cath Vital Signs Time Heart Resp SPO2 etCO2 NIBP (mmHg) Rhythm Pain Sedation Rate (ipm) (%) (mmHg) Status Level (bpm) 13:08:39 64 16 94 0 133/95(112) NSR 0 (11) 10(A) , No pain 13:12:49 67 17 100 0 140/92(129) NSR 0 (11) 10(A) , No pain 13:17:05 66 16 97 0 123/83(120) NSR 0 (11) 10(A) , No pain 13:21:17 50 17 96 0 129/79(114) NSR 0 (11) 10(A) , No pain 13:25:25 72 16 97 0 138/84(117) NSR 0 (11) 10(A) , No pain 13:29:39 63 17 96 0 133/76(109) NSR 0 (11) 10(A) , No pain 13:33:53 64 17 88 0 123/75(103) NSR 0 (11) 10(A) , No pain 13:38:05 71 16 94 0 121/72(99) NSR 0 (11) 10(A) , No pain Medications Time Medication Route Dose Verified Delivered Reason Notes Effective ness by by 13:10:14 Ancef I.V.P.B 1 g Jorge A José Luis Per (1Gm/50ml Stewart Petit RN physician NS) 13:10:23 Ancef Topical 1 g Jorge A José Luis used for Irrigation Stewart Petit side door man (1gm/500ml NS) 13:10:33 0.9% NaCl I.V. 100 Jorge A José Luis Per ml/hr Stewart Petit RN physician 13:20:04 Fentanyl I.V. 50 Jorge A José Luis for mcg Stewart Petit RN sedation 13:20:10 Versed I.V. 1 mg Jorge A José Luis for Stewart Petit RN sedation 13:22:54 Fentanyl I.V. 50 Jorge A José Luis for marcelina Petit RN sedation 13:22:59 Versed I.V. 1 mg Jorge A José Luis for Stewart Petit RN sedation Procedure Log Time Note 12:41:22 José Luis Petit RN sent for patient. Start room use. 12:50:19 Medtronic sales representative malt liquors Daljit Stephensoe present for procedure. 12:51:23 Time tracking: Regular hours (M-F 7:00 - 5:00) 12:51:26 Plan of Care:Hemodynamics will remain stable., Cardiac rhythm will remain stable., Comfort level will be maintained., Respiratory function will remain adequate., Patient/ family verbilizes understanding of procedure., Procedure tolerated without complication., Recovers from procedure without complications.. 12:58:39 Patient received from Pre/Post Procedure Room to CCL 3 Alert and oriented. Tansferred to table in Supine position. 12:58:40 Warm blankets applied, and delores hugger turned on for patient comfort. 12:58:40 Correct patient and procedure confirmed by team. 12:58:42 Signed procedure consent form obtained from patient. 12:58:43 ECG and BP/O2 sat monitors applied to patient. 12:58:44 Full Disclosure recording started 13:07:43 Vital chart was started 13:09:38 Rhythm: paced 13:10:09 H&P Date Dictated: 03/01/2018 Within 30 days and on chart., H&P Addendum completed by physician on day of procedure. (MUST COMPLETE FOR ALL OUTPATIENTS). 13:10:10 Pre-procedure instructions explained to patient. 13:10:10 Pre-op teaching completed and patient verbalized understanding. 13:10:12 Family in patients room. 13:10:13 Patient NPO since Midnight. 13:10:14 Ancef (1Gm/50ml NS) 1 g I.V.P.B was administered by José Luis Petit RN; Per physician; 13:10:15 Is the patient allergic to Iodine/contrast media? No. 13:10:16 Is patient on blood thinner?No 13:10:19 Patient diabetic? Yes. 13:10:20 If diabetic: On Metformin? No 13:10:23 Ancef Irrigation (1gm/500ml NS) 1 g Topical was administered by José Luis Petit RN; used for procedure; 13:10:23 Previous problem with sedation/anesthesia? No ? 13:10:24 Snore? Yes 13:10:29 Sleep apnea? No 13:10:30 Deviated septum? No 13:10:31 Opens mouth fully? Yes 13:10:32 Sticks out tongue? Yes 13:10:33 0.9% NaCl 100 ml/hr I.V. was administered by José Luis Petit RN; Per physician; 13:10:34 Airway obstruction? No ? 13:10:36 Dentures? No ? 13:12:18 Patient pain scale 0/10 ?. 13:12:25 IV patent on arrival in port with 0.9% NaCl at [facility]. 13:12:27 Lab results completed and on chart. 13:12:35 Right chest area was prepped with dura-prep and draped in sterile fashion 13:12:36 Alarms reviewed by R. N. 13:12:37 Sharps counted by scrub and verified by R.N. 13:13:08 Use device set JOAN PPM 13:13:53 Mepilex Dressing ([id number]) opened to sterile field. 13:13:56 Cautery Pushbutton Pencil opened to sterile field. 13:14:02 Cautery Tip Field Attendant opened to sterile field. 13:14:03 5-0 Monocryl PS2 [id number] opened to sterile field. 13:14:04 3-0 Vicryl Single Pack [id number] opened to sterile field. 13:14:05 2-0 Ticron Multipack ([id number]) opened to sterile field. 13:14:22 ZighraA SR Generator [id number] opened to sterile field. 13:15:25 Pre sharps counted by scrub and verified by RN: Sutures: 7; Sponges: 5; Stick needles: 0; Skin needles: 2; Blade: 1; Cautery: 1 13:15:31 Grounding pad site Left thigh. 13:15:33 Grounding pad site free from injury. 13:18:59 --------ALL STOP TIME OUT------ 13:19:00 Final Timeout: patient, procedure, and site verified with staff and physician. All members of the team are in agreement. 13:19:06 Right chest site verified by team. 13:19:10 Physical assessment completed. ASA score P 2 - A patient with mild systemic disease as per Conner Varela MD. 13:19:13 Sedation plan: IV Moderate Sedation Medication:Versed, Fentanyl 13:20:04 Fentanyl 50 mcg I.V. was administered by José Luis Petit RN; for sedation; 13:20:10 Versed 1 mg I.V. was administered by José Luis Petit RN; for sedation; 13:22:39 Procedure started. 13:22:40 Lidocaine 1% w/epi was administered to right subclavicular area by Conner Varela MD . 13::54 Fentanyl 50 mcg I.V. was administered by José Luis Petit RN; for sedation; 13::59 Versed 1 mg I.V. was administered by José Luis Petit RN; for sedation; 13:23:14 Incision made to right subclavicular area. 13:23:31 Generator pocket made/opened. 13::48 PPM Single was removed.. 13::15 PPM Single was attached to lead(s) and inserted into pocket. 13::21 Device pocket was irrigated with Ancef. 13::31 Generator was sutured in place with 2-0 ticron. 13:28:17 Subcutaneous closure was completed with 3-0 vicryl. 13::27 Skin closure was completed with 5-0 monocryl. 13:31:13 Parameters-- Generator: Mode: VVIR. Lower Rate: 60bpm. Upper Rate: 130bpm. 13:32:16 Parameters--Ventricular P/R Wave: 12.6mV. Current: .10mA; Threshold: 1.5V; Impedence: 666OHMS. 13:35:19 Rt Chest incision was dressed with Mepilex dressing. 13:35:24 Procedure ended.(Physican Out) 13:35:26 Fluoroscopy time 00.00 minutes. 13:35:28 Fluoroscopy dose: 0 mGy 13:35:28 Flurop Dose total: 0 13:35:31 Contrast amount:Isovue 300 0ml. 13:35:32 Sharps counted by scrub and verified by R.N. 13:36:37 Post sharps counted by scrub and verified by RN: Sutures: 7; Sponges: 5; Stick needles: 0; Skin needles: 2; Blade: 1; Cautery: 1 13:36:45 Insertion/operative site no bleeding no hematoma. 13:36:50 Post Procedure Pulses reassessed and unchanged 13:37:10 Post-procedure physical assessment completed. ASA score P 2 - A patient with mild systemic disease as per Conner Varela MD. 13:37:14 Post procedure rhythm: paced 13:37:18 Estimated blood loss: 5 ml 13:37:20 Post procedure instruction explained to patient.Patient verbalizes understanding. 13:37:20 Patient needs reinforcement of post procedure teaching. 13:37:46 Procedure type changed to Cath procedure, Diagnostic procedure, PPM/ICD, PPM Generator Exg. Single 13:38:02 Procedure and supply charges have been captured, reviewed, submitted and are correct. 13:38:05 Procedure Complication : No complications 13:38:07 Vital chart was stopped 13:38:08 See physician's report for complete and final results. 13:38:13 Report given to Pre/Post Procedure Room. 13:38:18 Patient transfered to Pre/Post Procedure Room with Stretcher. 13:38:21 Procedure ended. 13:38:21 Full Disclosure recording stopped 13:41:09 End room use (Document Last) Device Usage Item Name Manufacture Quantity Catalog Hospital Part Current Minimal Lot# / Number Charge Number Stock Stock Serial# Code Mepilex Cardinal 1 [id number] [id number] [id number] [address] [facility] ([id number]) Cautery Microtek 1 [id number] 45518 [id number] 5 [employer] Pencil Cautery Tip Microtek 1 [id number] 792745 839779 264310 5 [employer] 5-0 Monocryl Ethicon 1 [id number] [id number] [id number] 5 PS2 [id number] 3-0 Vicryl Ethicon 1 [id number] 940771 948672 5 Single Pack [id number] 2-0 Ticron Ethicon 1 [id number] 622653 06013 147122 5 Multipack ([id number]) Medtronic Medtronic 1 [id number] [id number] 5 [id number] ADVISA SR EXP Generator 01-26-2019 [id number] Signature Audit Hermon Stage Time Signature Unsigned Intra-Procedure 03/09/2018 Milton Cheung 1:41:21 PM RT(R) Signatures Monitor : Milton Cheung RT Signature : Date : Time : [address] [address]
[~2018-03-09 11:22] MED LIST changes: +DETROL1 MG PO; +HYDROCODON-ACE1 EAC7 PO; +LEVOTHYROXINE50 MCG PO; +MULTI-DAY VITAM1 TAB PO
[2018-03-09 12:08] VITALS: BP 118/57; Ht 162.6 cm; Wt 79.5 kg
[2018-03-09 12:45] LABS: HEMATOCRIT 36.7 % (36.0-48.0); HEMOGLOBIN 12.3 g/dL (12-16); MCH 31.2 pg (26.0-34.0); MCHC 33.5 g/dL (31.0-37.0); MCV 93.1 fL (80.0-100.0); MEAN PLATELET VOLUME 10.5 fL (7.4-10.4); RBC 3.94 10x6/uL (4.00-5.40); RDW 12.9 % (11.5-14.5); WBC 3.7 10x3/uL (4.8-10.8)
[2018-03-09 12:55] LABS: APTT 26.2 SECONDS (22.8-39.4); CALC OSMOLALITY 289 mosm/kg (275-300); CALCIUM 9.1 mg/dL (8.5-10.1); CHLORIDE - SERUM 108 mmol/L (98-107); CREATININE - SERUM 0.8 mg/dL (0.6-1.3); GLUCOSE 115 mg/dL (74-106); INR 1.08 (0.85-1.17); PROTIME 13.6 SECONDS (11.6-15.0); SODIUM 144 mmol/L (136-145); UREA NITROGEN 19 mg/dL (7-18); eGFR NON AFRICAN AMERICAN 76 mL/min (90-120)
== END | disposition home or self-care (01) ==
LOC: D.CATH 11:22
PROVIDERS: Internal Medicine Cardiovascular Disease
DX: Z45.010 Encounter for checking and testing of cardiac pacemaker pulse generator [battery] (principal); I49.5 Sick sinus syndrome